=== PATIENT | male | born 1935 | race Caucasian/White ===

== ENCOUNTER 2024-03-07 23:31 | Inpatient (IN) | payer MEDICARE, SELFPAY ==
[2024-03-07] VITALS (7 sets, daily range): BP systolic 118–143; BP diastolic 33–88; PULSE 48–52; BMI 38.8
[2024-03-07 18:15] LABS: % Basophils 0.4 % (0-2); % Eosinophils 1.5 % (0-6); % Immature Granulocytes 0.3 % (0-0.5); % Lymphocytes 33.2 % (20.5-51.1); % Neutrophils 54.6 % (42.2-75.2); Absolute Eosinophils 0.1 10^3/uL (0-0.7); Absolute Lymphocytes 2.4 10^3/uL (1.2-3.4); Absolute Monocytes 0.7 10^3/uL (0.1-0.6); Absolute Neutrophils 3.9 10^3/uL (1.4-6.5); Hematocrit 36.6 % (39.0-52.0); Hemoglobin 12.3 g/dL (13.0-18.0); Mean Corp Hgb Conc. 33.6 g/dL (33.0-37.0); Mean Corpuscular Volume 86.3 fL (80.0-94.0); Mean Platelet Volume 9.5 fL (7.4-10.4); Nucleated Red Blood Cells % 0 % (-); Platelet Count 149 10^3/uL (130-400); Red Blood Cell Count 4.24 10^6/uL (4.70-6.10); Red Cell Dist. Width 14.8 % (11.5-14.5); White Blood Cell Count 7.2 10^3/uL (4.8-10.8)
[2024-03-07 18:37] LABS: ALT (SGPT) 13 U/L (0-50); AST (SGOT) 20 U/L (17-59); Albumin 4.5 g/dl (3.5-5.0); Alkaline Phosphatase 78 U/L (38-126); Blood Urea Nitrogen 33 mg/dl (9-20); Calcium 8.9 mg/dl (8.4-10.2); Glucose 113 mg/dl (70-99); Total Bilirubin 0.4 mg/dl (0.2-1.3); Total Protein 6.6 g/dl (6.3-8.2)
[2024-03-07 18:54] LABS: NT-proBNP 6930 pg/ml
[2024-03-07 18:56] LABS: Carbon Dioxide 22 mmol/L (22-30); Chloride 107 mmol/L (98-107); Potassium 4.2 mmol/L (3.5-5.1); Sodium 140 mmol/L (135-145); eGFR 33.72
--- NOTE | 2024-03-07 20:51 | ED.GENMED ---
History of Present Illness
General
Chief Complaint: Heart Rate Problem
Source: patient
Exam Limitations: none
Time Seen by Provider: 03/07/24 20:18
History of Present Illness
History of Present Illness:
This is a 88 year old male that comes in with c/o feeling like he is going to pass out. States that this started on Thursday. States that he feels like if he doesn't hold on to things he is going to fall. States that he has not fallen. States that he
feels very SOB. Denies any fever, chills, chest pain, abd pain, nausea, vomiting, diarrhea, headache, no dizziness, urinary burning.
Past History
Past History
ED Past Medical History: CAD, Cancer (Skin CA), CHF, COPD, GERD, HTN, Hypercholesterolemia, NIDDM, GA, Psychiatric (Claustrophobia) and Other (Neuropathy, numbness and tingling in the arms and legs. Sleep apnea, Mitral regurg, Ulcers)
ED Past Surgical History: Appendectomy, Cardiac (Stents, CABG, ), Orthopedic (Bilateral knee's and left hip and right hip replacement, Foot surgery, Torn meniscus) and Other (Cataracts, Myringotomy tube left ear)
Social History
Tobacco: Former smoker
Alcohol: Occasional
Personal:
Living: alone
Review of Systems
Review of Systems
All Other Systems: ROS reviewed and negative except as documented in HPI and ROS
Constitutional: Reports no symptoms; Denies fever or chills
EENT: Reports no symptoms
Respiratory: Reports trouble breathing; Denies cough
Cardiac: Reports no symptoms; Denies chest pain
ABD/GI: Reports no symptoms; Denies abdominal pain, nausea, vomiting or diarrhea
: Reports no symptoms; Denies dysuria, frequency or urgency
Musculoskeletal: Reports no symptoms
Skin: Reports no symptoms
Neurological: Reports other (Feels like he is going to fall); Denies dizzy or headache
Psychiatric: Reports no symptoms
Phy Exam
General Physical Exam
General Presentation: no apparent distress
General age: appears stated age
General Skin: warm
General Habitus: elderly
General Mental: alert
General Hydration: appears well hydrated
ENT Exam
ENT Exam: TM's normal, pharynx normal and neck supple
Eye Exam
Eye Exam: EOMI
Cardiovascular Exam
Cardiovascular Exam: normal peripheral pulses, bradycardia and irregularly irregular
Pulmonary Exam
Pulmonary Exam: lungs clear, no respiratory distress, no rales, chest non tender, no crackles, no rhonchi, no wheezing and no cough
Gastrointestinal Exam
Gastrointestinal Exam: normal bowel sounds, non tender, soft, no organomegaly, no pulsatile mass and non distended
Musculoskeletal Exam
Musculoskeletal Exam: full ROM and edema (+2pitting edema of the lower legs)
Skin Exam
Skin Exam: normal color, warm/dry, no rash and no petechia
Psychiatric Exam
Psychiatric Exam: normal mood/affect
Course
Orders/Labs/Results
Orders:
Orders
03/07/24 17:51
EKG [Electrocardiogram (*1)] Urgent
Reason for Study: Shortness of Breath
EKG- Treatment ONCE
03/07/24 18:08
BNP [NT-proBNP] Urgent
CMP [Comprehensive Metabolic Panel] Urgent
Complete Blood Count/With Diff Urgent
03/07/24 20:50
CR Chest - 2 Views Urgent
Comment:
Reason For Exam: sob
03/07/24 20:51
Troponin I Urgent
03/07/24 20:54
CT Head W/o Iv Contrast Urgent
Comment:
Reason For Exam: Feels like he is going to fall
03/07/24 21:12
COVID-19 Antigen Urgent
Source: Nasal Swab
03/07/24 21:23
Orthostatic VS- Treatment ONCE
03/07/24 22:59
EKG- Treatment ONCE
03/07/24 23:20
Admit/Transfer Patient As Directed
Co-Sign Provider:
Level of Care: Inpatient admission
Assign to:: Telemetry
Physician / Group: salo
Diagnosis: orthostatic hypotension, chf exacerbation
Reason for Telemetry: Arrhythmia
Date to Stop Telemetry: 03/10/24
Time to Stop Telemetry: 11:00
Reason for Hospitalization: orthostatic hypotension, chf exacerbation
Expected length of stay greater than two midnights?: Yes
ELOS- Estimated Length of Stay in days: 2
I certify the patient meets the requirements for IP care: Yes
03/07/24 23:21
Code Status As Directed
Resuscitation Status: Full Code
PRN Pain Medication Management As Directed
May give lesser potent ordered pain med per pt: Yes
preference::
Protocol:: Medication orders for pain may be administered in a
manner that supports deferring to patient preference
when the pt is:
- Requesting an ordered lesser potent pain medication.
Least to most potent pain medications are defined
as: acetaminophen < NSAID < tramadol < opioids
(morphine, oxycodone, hydromorphone).
- Requesting a lesser dose of the same medication IF
ORDERED.
- Requesting a less intrusive route of administration
if both routes are prescribed by the provider (PO <
IV).
03/07/24 23:55
Electrocardiogram (*1) Urgent
Reason for Study: Atrial Fibrillation
Other Reason for Exam: Repeat with Troponin.
Troponin I Urgent
03/10/24 11:00
DC Protocol for Telemetry ONCE
Abnormal Lab Results
03/07/24 03/07/24
18:08 20:51
RBC 4.24 L 10^6/uL
(4.70-6.10)
Hgb 12.3 L g/dL
(13.0-18.0)
Hct 36.6 L %
(39.0-52.0)
RDW 14.8 H %
(11.5-14.5)
Absolute Monos (auto) 0.7 H 10^3/uL
(0.1-0.6)
Monocytes % 10.0 H %
(1.7-9.3)
BUN 33 H mg/dl
(9-20)
Creatinine 1.9 H mg/dL
(0.7-1.3)
Glucose 113 H mg/dl
(70-99)
Troponin I 0.046 H* ng/ml
03/07/24 18:08
03/07/24 18:08
H/H slightly low. Dehydration, chronic renal insufficiency, Glucose nonfasting Pro-BNP 6930 troponin 0.046
Vital Signs
Initial and Last Documented VS:
Initial Vital Signs
Temp Pulse Resp BP Pulse Ox
98.0 F 52 20 128/66 94
03/07/24 17:46 03/07/24 17:46 03/07/24 17:46 03/07/24 17:46 03/07/24 17:46
Last Documented Vital Signs
Temp Pulse Resp BP Pulse Ox
98.0 F 53 19 135/88 97
03/07/24 17:46 03/07/24 23:25 03/07/24 23:25 03/07/24 22:37 03/07/24 22:45
MDM/Problems Addressed
Differential Diagnosis Includes:
Cardiac arrhythmia, CHF, CVA
MDM/Problems Addressed:
This is a 88 year old male that comes in with c/o feeling like he is going to fall or pass out when he walks. States that he is very SOB and that this started on Thursday.
Will check labs, Ct head and chest x-ray.
Back into see patient. Explained that his Troponin is elevated along with the Pro-BNP. Patient is very bradycardic Spoke with Dr. Echavarria and he said that in September patient weighed 248 and now is 260 today. States that he also became very Orthostatic
in there office. Explained to patient that they may need to adjust his medication. Will admit.
Chronic conditions affecting care: CAD and Arrhythmia
Acute Exacerbation and/or Progression of Chronic Illness: CAD and Arrhythmia
*Radiology
Radiology exam reviewed: radiology read reviewed (Chest- No acute cardiopulmonary process. CT head- No acute intracranial abnormality noted. )
*Pulse Oximetry
Patient hypoxic: no
*EKG
Interpreted by ED Provider?: Yes
Heart Rate: 54
Rate: bradycardiac
Rhythm: a-fib
[place]: left axis deviation
QRS Pattern: right bundle branch block (incomplete)
Ischemia: no ischemia
*End Finder Forming Department Interpretation
Rate: bradycardiac
Heart Rate: 55
Rhythm: a-fib
*Critical Care Note
Total Time (30-74mins, 75-104mins- exclusive of procedures): Not Applicable
ED Attending Note
-
Portions of this chart may have been created with voice recognition software.� Occasional wrong word or��sound alike� substitutions may have occurred due to the inherent limitations of voice recognition software.
Discharge Plan
Departure
Patient Disposition: Admit
Date of Disposition: 03/07/24
Time of Disposition: 23:02
Admit to: Telemetry
Presentation/result/management discussed w/ accepting MD/DO: Hospitalist
Patient with high blood pressure during this ER visit?: Yes
Condition: Good
Covid-19: Not Applicable
Discharge Problem:
Elevated troponin, bradycardic atrial fib, SOB (shortness of breath)
Interventions
Interventions:
ED- Fall Risk Assessment Last Done: 03/07/24 21:15
*ED COVID-19 Vaccine History Last Done: 03/07/24 17:46
ED- Pulmonary Assessment Last Done: 03/07/24 21:15
ED- Neurological Assessment Last Done: 03/07/24 21:15
ED- Cardiac Assessment Last Done: 03/07/24 21:15
[2024-03-07 21:19] LABS: COVID-19 Antigen Negative (Negative)
[2024-03-07 21:38] LABS: Troponin I 0.046 ng/ml
--- NOTE | 2024-03-07 23:24 | HPS.HSE ---
Family Physician
-
Family Physician: Reed Echavarria
Chief Complaint
-
dizziness
History of Present Illness
88-year-old male past medical history of diabetes, coronary artery disease status post CABG/ stent, moderate aortic stenosis, obstructive sleep apnea, COPD, obesity hypoventilation, hypertension, obesity, CKD 3A, BPH, hypercholesterolemia,
presenting with feeling like he is going to pass out over the past 2 days. He states that if he does not hold onto anything he is going to fall. He denies falling. He feels short of breath with exertion which started at the same time. He denies
any fevers or chills, chest pain, abdominal pain, nausea vomiting, diarrhea, headache, urinary symptoms.
Emergency room spoke with Dr. Echavarria who states that patient was 248 pounds in September and now 260 pounds. He was noted to be orthostatic in the office. He denies any lower extremity edema.
He no longer smokes. He occasionally drinks alcohol.
Medical History
Past Medical History
Past Medical History: Reports Other (diabetes, coronary artery disease status post CABG/ stent, moderate aortic stenosis, obstructive sleep apnea, COPD, obesity hypoventilation, hypertension, obesity, CKD 3A, BPH, hypercholesterolemia)
Past Surgical History: Reports Other ( Appendectomy, Cardiac (Stents, CABG, ), Orthopedic (Bilateral knee's and left hip and right hip replacement, Foot surgery, Torn meniscus) and Other (Cataracts, Myringotomy tube left ear))
Social History
Tobacco: Former Smoker
Alcohol: Occasional
Drug: None
Family History
Family History: Not pertinent
Allergies / Home Medications
Allergies reflects when Allergies were last updated in [facility].
Home Medications with original date entered in [facility]
Allergy/Medication List:
Allergies
Allergy/AdvReac Type Severity Reaction Status Date / Time
No Known Allergies Allergy Verified 03/07/24 17:50
Home Medications
albuterol sulfate 90 mcg/actuation aerosol inhaler 2 puff inhalation R Q4HPRN PRN SHORTNESS OF BREATH 08/03/20
ascorbic acid (vitamin C) 1,000 mg tablet (Vitamin C) 1,000 mg PO DAILY Supplement 08/03/20
budesonide 32 mcg/actuation nasal spray (Rhinocort Allergy) 2 spray intranasal DAILY Allergies 08/03/20
cyanocobalamin (vitamin B-12) 1,000 mcg tablet 1,000 mcg PO DAILY Supplement 08/03/20
esomeprazole magnesium 40 mg capsule,delayed release (Nexium) 40 mg PO DAILY Gastrointestinal issue 08/03/20
fluticasone fur. 100 mcg-umeclid 62.5 mcg-vilant 25 mcg inhalat.powder (Trelegy Ellipta) 1 puff inhalation R DAILY Lung/breathing issues 08/03/20
furosemide 80 mg tablet 80 mg PO DAILY Fluid retention/Swelling 08/03/20
gabapentin 300 mg capsule 300 mg PO BID@0800,1700 Pain 08/03/20
gabapentin 300 mg capsule 600 mg PO HS Pain 08/03/20
iqkhbozkmlf-mwlmluswl-key C-Mn 750 mg-600 mg-55 mg-5 mg tablet 1 tab PO BID Supplement 08/03/20
lisinopril 5 mg tablet 5 mg PO DAILY Blood pressure 08/03/20
loratadine 10 mg tablet 10 mg PO DAILYPRN PRN allergies 08/03/20
meloxicam 7.5 mg tablet 7.5 mg PO BID Pain 08/03/20
metoprolol succinate 50 mg tablet,extended release 24 hr 50 mg PO DAILY Blood pressure 08/03/20
multivitamin with folic acid 400 mcg tablet (Tab-A-Evie) 1 tab PO DAILY Supplement 08/03/20
paroxetine HCl 12.5 mg tablet,extended release 24 hr 12.5 mg PO DAILY Depression 08/03/20
potassium chloride 20 mEq tablet,extended release(part/cryst) (Klor-Con M) 20 meq PO DAILY Supplement 08/03/20
rosuvastatin 40 mg tablet (Crestor) 40 mg PO HS High cholesterol 08/03/20
vitamin B complex (Neurodep) 1 cap PO DAILY Supplement 08/03/20
insulin aspart U-100 100 unit/mL (3 mL) subcutaneous pen (Novolog FlexPen U-100 Insulin aspart) 12 units (0.12 mL) SC AC ##1 08/04/20
insulin glargine 100 unit/mL (3 mL) subcutaneous pen (Lantus Solostar U-100 Insulin) 20 units (0.2 mL) SC HS ##1 08/04/20
Review of Systems
-
History Source: Patient
A 12 point ROS was completed and negative except as noted: Yes
Constitutional: Reports No Symptoms
EENT: Reports No Symptoms
Respiratory: Reports See HPI
Cardiac: Reports No Symptoms
Abdomen/GI: Reports No Symptoms
: Reports No Symptoms
Musculoskeletal: Reports No Symptoms
Skin: Reports No Symptoms
Neurological: Reports See HPI
Endocrine: Reports No Symptoms
Hematologic/Lymphatic: Reports No Symptoms
Psych: Reports No Symptoms
Physical Exam
Vital Signs
Vital Signs
Temp Pulse Resp BP Pulse Ox
98.0 F 49 16 135/88 97
03/07/24 17:46 03/07/24 22:45 03/07/24 22:45 03/07/24 22:37 03/07/24 22:45
Physical Exam
General: Well Developed, Well Nourished and No Apparent Distress
HEENT: NormoCephalic, Moist mucous membranes and Atraumatic
Respiratory: Clear
Cardiac: S1/S2 and Regular Rhythm; No Murmur or Rub
GI: Soft, Non Tender, Non Distended and Normal Bowel Sounds; No Organomegaly
Rectal: Deferred by Provider
Musculoskeletal: No Clubbing, No Cyanosis and No Edema
Skin: No Rash
Neuro: Nonfocal/grossly intact
Laboratory Results
-
03/07/24 18:08
03/07/24 18:08
Laboratory Results
Total Bilirubin 0.4 mg/dl (0.2-1.3) 03/07/24 18:08
AST 20 U/L (17-59) 03/07/24 18:08
ALT 13 U/L (0-50) 03/07/24 18:08
Alkaline Phosphatase 78 U/L (38-126) 03/07/24 18:08
Troponin I 0.046 ng/ml H* 03/07/24 20:51
Data Reviewed
-
Lab Data: Labs Reviewed by me
Old Records: Reviewed
Impression/Plan
-
IMPRESSION:
PLAN:
# Orthostatic hypotension secondary to antihypertensive/cardiac medications
-Check orthostatic vitals here
-Hold lisinopril
# New onset atrial fibrillation with slow ventricular response
-EKG shows atrial fibrillation, incomplete right bundle branch block, heart rate of 54
-Hold metoprolol
# Acute CHF exacerbation
-Cardiac BNP of 7000
-Chest x-ray without any cardiopulmonary abnormality
-Check I's and O's, daily weights
-Patient appears to be clinically in heart failure however cannot easily diurese at this time due to orthostatic hypotension
-continue Jardiance
-check echo
-cardiology consulted
# Nonischemic myocardial injury
# History of CAD status post CABG
-continue aspirin
-Trend troponins
# BUDDY on CKD 3A secondary to cardiorenal/hypotension
-Creatinine of 1.9 from 1.2
-Hold lisinopril
Moderate aortic stenosis
Obstructive sleep apnea
COPD
-Continue albuterol, inhalers
Former smoker
Obesity hypoventilation
Type 2 diabetes
-Continue glargine 10 u
-ISS
Diabetic neuropathy
-Continue Lyrica
Essential hypertension
Hyperlipidemia
-Continue statin
Obesity
GERD
-Continue omeprazole
Anxiety/depression
-Continue paroxetine
Chronic Back pain
-continue tramadol
BPH
-continue tamsulosin
Full code
DVT prophylaxis�heparin
Cardiac diet
[2024-03-08] VITALS (10 sets, daily range): BP systolic 113–155; BP diastolic 66–80; PULSE 2–61; BMI 37.4
[2024-03-08 01:15] LABS: Troponin I 0.043 ng/ml
[2024-03-08 01:34] LABS: Glucose - Point of Care 120 mg/dl (70-99)
--- NOTE | 2024-03-08 05:51 | PTCARENOTE ---
Pt's HR dropping to 34-39 on monitor while asleep. HR in 50s while awake. CORE DRILLER notified. No new orders.
BiPAP order placed for pt. RT on floor to place on pt. Plan of care ongoing.
[2024-03-08 07:13] LABS: % Basophils 0.6 % (0-2); % Eosinophils 1.4 % (0-6); % Immature Granulocytes 0.3 % (0-0.5); % Lymphocytes 35.2 % (20.5-51.1); % Monocytes 9.9 % (1.7-9.3); % Neutrophils 52.6 % (42.2-75.2); Absolute Eosinophils 0.1 10^3/uL (0-0.7); Absolute Lymphocytes 2.3 10^3/uL (1.2-3.4); Absolute Monocytes 0.6 10^3/uL (0.1-0.6); Absolute Neutrophils 3.4 10^3/uL (1.4-6.5); Hematocrit 36.7 % (39.0-52.0); Hemoglobin 12.2 g/dL (13.0-18.0); Mean Corp Hgb Conc. 33.2 g/dL (33.0-37.0); Mean Corpuscular Hgb 28.6 pg (27.0-31.0); Mean Corpuscular Volume 86.2 fL (80.0-94.0); Nucleated Red Blood Cells % 0 % (-); Platelet Count 142 10^3/uL (130-400); Red Blood Cell Count 4.26 10^6/uL (4.70-6.10); Red Cell Dist. Width 14.6 % (11.5-14.5); White Blood Cell Count 6.5 10^3/uL (4.8-10.8)
[2024-03-08 07:21] LABS: Troponin I 0.043 ng/ml
[2024-03-08 07:34] LABS: ALT (SGPT) 12 U/L (0-50); AST (SGOT) 19 U/L (17-59); Albumin 3.9 g/dl (3.5-5.0); Alkaline Phosphatase 79 U/L (38-126); Blood Urea Nitrogen 29 mg/dl (9-20); Calcium 8.9 mg/dl (8.4-10.2); Carbon Dioxide 24 mmol/L (22-30); Chloride 107 mmol/L (98-107); Estimated Creatinine Clearance 41 ml/min; Glucose 104 mg/dl (70-99); Potassium 4.2 mmol/L (3.5-5.1); Sodium 140 mmol/L (135-145); Total Bilirubin 0.5 mg/dl (0.2-1.3); Total Protein 5.9 g/dl (6.3-8.2); eGFR 41.44
[2024-03-08 07:53] LABS: Glucose - Point of Care 109 mg/dl (70-99)
--- NOTE | 2024-03-08 07:53 | CON.CAR ---
Addendum entered and electronically signed by Kuldip Lima MD 03/08/24 10:49:
I saw and examined the patient.
The TACK WELDER or PA's note was reviewed and I agree with the note.
Comment: General: Well developed, well nourished in NAD.
Neck: Supple, no JVD, HJR, carotids +2 B/L, no bruits bilaterally.
Heart: Non displaced PMI, Irreg, no murmurs, No S3, S4, no rubs.
Lungs: Clear to auscultation bilaterally, no wheeze, rhonchi, rubs bilaterally,
normal expiratory phase.
Abdomen: Normal bowel sounds, soft, non-tender, non-distended.
Extremities: No clubbing, cyanosis or edema bilaterally.
Neuro: Grossly nonfocal, awake, alert and oriented x3.
Reed has a history of CAD status post CABG and remote PCI, chronic diastolic CHF, obesity, sleep apnea on CPAP, moderate aortic stenosis, hyperglycemia, renal sufficiency, diabetes. He presented with dyspnea on exertion and new onset atrial
fibrillation. He also has had dizziness recently.
Reluctant to give diuretics with renal insufficiency which has improved. Remains in A-fib with pauses at times and Toprol has been stopped.
Eventual AMILCAR/cardioversion. Will check echocardiogram. Will start Eliquis 2.5 mg p.o. twice daily which may need to be changed based on eventual renal function
Original Note:
Consultation
Consultation Request
Date/Time Consultation Performed: 03/08/24
Requesting Provider: Dr. Amador
Performing Provider: Joyce Merino PA-C for Dr. Lima
Reason for Consultation: DIANA
Medical History
-
Chief Complaint: DIANA
History of Present Illness:
Patient is reporting an 88-year-old male with past medical history of CAD status post remote CABG and prior PCI, chronic HFpEF, obesity, BRAYDON on CPAP, moderate aortic stenosis, hypercholesterolemia, renal insufficiency, diabetes with diabetic
neuropathy who presented to due to DIANA. He reports noting worsening shortness of breath with exertion and associated lightheadedness since last Thursday. He reports he sits down and it resolves. He denies chest discomfort or palpitations. He
denies noting worsening lower extremity edema or abdominal bloating. He reports it was difficult last night to breathe prior to placing his CPAP. He states he has been compliant with his CPAP every night. He takes p.o. Lasix 80 mg daily as OP. He
has noted recent weight gain, however states he feels as though this is related to poor diet. Reportedly was orthostatic in PCP office yesterday. ProBNP 6900. CXR without acute abnormality. EKG shows new afib with slow vent response. On toprol 25mg
daily as OP. Cardiology consulted for evaluation.
PMH:
Chronic heart failure with preserved EF
CAD status post remote CABG and prior PCI
Renal insufficiency
Moderate
Hypertension
Hyperlipidemia
Diabetes with diabetic neuropathy
COPD
Obesity
BRAYDON on CPAP
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
Remote former smoker
Past Medical History
Past Medical History: Other (in HPI)
Social History
Tobacco: Former Smoker
Alcohol: Occasional
Personal:
Living: Assisted Living
Employment: Retired
Allergies / Home Medications
Allergy/AdvReac Type Severity Reaction Status Date / Time
No Known Allergies Allergy Verified 03/07/24 17:50
�Medication �Instructions �Recorded �Confirmed �Type
albuterol sulfate 90 mcg/actuation 2 puff inhalation R Q4HPRN PRN 08/03/20 03/07/24 History
aerosol inhaler SHORTNESS OF BREATH
cyanocobalamin (vitamin B-12) 1,000 mcg PO DAILY Supplement 08/03/20 03/07/24 History
1,000 mcg tablet
esomeprazole magnesium 40 mg 40 mg PO DAILY Gastrointestinal 08/03/20 03/07/24 History
capsule,delayed release (Nexium) issue
furosemide 80 mg tablet 80 mg PO DAILY Fluid 08/03/20 03/07/24 History
retention/Swelling
yxegxtkgzmm-svkqrhaom-cby C-Mn 750 1 tab PO BID Supplement 08/03/20 03/07/24 History
mg-600 mg-55 mg-5 mg tablet
lisinopril 5 mg tablet 5 mg PO DAILY Blood pressure 08/03/20 03/07/24 History
loratadine 10 mg tablet 10 mg PO DAILY 08/03/20 03/07/24 History
multivitamin with folic acid 400 1 tab PO DAILY Supplement 08/03/20 03/07/24 History
mcg tablet (Tab-A-Evie)
paroxetine HCl 12.5 mg 12.5 mg PO DAILY Depression 08/03/20 03/07/24 History
tablet,extended release 24 hr
potassium chloride 20 mEq 20 meq PO DAILY Supplement 08/03/20 03/07/24 History
tablet,extended
release(part/cryst) (Klor-Con M)
rosuvastatin 40 mg tablet (Crestor) 40 mg PO HS High cholesterol 08/03/20 03/07/24 History
ascorbic acid (vitamin C) 500 mg 500 mg PO DAILY 03/07/24 03/07/24 History
tablet (Vitamin C)
aspirin 81 mg tablet,delayed 81 mg PO HS 03/07/24 03/07/24 History
release
empagliflozin 10 mg tablet 10 mg PO DAILY 03/07/24 03/07/24 History
(Jardiance)
insulin glargine 100 unit/mL (3 10 unit SC HS 03/07/24 03/07/24 History
mL) subcutaneous pen (Basaglar
KwikPen U-100 Insulin)
metoprolol succinate 25 mg 25 mg PO DAILY 03/07/24 03/07/24 History
tablet,extended release 24 hr
pregabalin 100 mg capsule 100 mg PO TID 03/07/24 03/07/24 History
tamsulosin 0.4 mg capsule 0.4 mg PO HS 03/07/24 03/07/24 History
tramadol 50 mg tablet 50 mg PO TIDPRN PRN moderate pain 03/07/24 03/07/24 History
umeclidinium 62.5 mcg-vilanterol 1 inh inhalation R DAILY 03/07/24 03/07/24 History
25 mcg/actuation powdr for
inhalation (Anoro Ellipta)
Review of Systems
-
History Source: Patient
All other systems: Negative unless noted
Physical Exam
Vital Signs
Temp Pulse Resp BP Pulse Ox
97.6 F 56 18 113/77 98
03/08/24 07:00 03/08/24 07:00 03/08/24 07:00 03/08/24 07:00 03/08/24 07:00
Lab Results
03/08/24 06:46
03/08/24 06:46
Troponin I Cancelled 03/08/24 19:21
Nxd-S-Xjiflplcojc Pept 6930 pg/ml 03/07/24 18:08
Physical Exam
General: No Apparent Distress and Comfortable
HEENT: Normocephalic, Anicteric and Moist Mucous Membranes
Respiratory: Clear and Non Labored Respirations
Cardiac: S1/S2, Irregular Rhythm and Murmur
GI: Soft, Non Tender, Non Distended and Normal Bowel Sounds
Musculoskeletal: No Clubbing, No Cyanosis and Edema (1+ of RLE, trace of LLE)
Skin: Warm and Dry
Neuro: AO x 3
Impression / Plan
-
Primary Hair Weaver: Dr. Lima
Assessment:
Presentation with DIANA, lightheadedness
Concern for acute on chronic heart failure with preserved EF
Orthostasis
BUDDY on chronic renal insufficiency
New atrial fibrillation of unclear duration, with slow ventricular response
Elevated troponin, suspected nonischemic myocardial injury
CAD status post remote CABG and prior PCI
Moderate
Hypertension
Hyperlipidemia
Diabetes with diabetic neuropathy
COPD
Obesity
BRAYDON on CPAP
GERD
BPH
Chronic back pain
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
Remote former smoker
Lexiscan nuclear stress test 08/2018: Imaging with small area of mildly decreased perfusion fixed in basal anterolateral segment that resolves with prone imaging consistent with STA, EF 58%, no evidence of significant CAD
ECHO 06/03/23: EF 50-55, no regional wall motion abnormalities, mild concentric LVH, moderate AAS with peak/mean gradients 29/18 mmHg, BRENDA 1.2 cm�, mild AR
Plan:
-Patient is an 88-year-old male who presented to [facility] due to dyspnea on exertion with associated dizziness.
-proBNP elevated and patient reports weight gain due to dietary indiscretion, however x-ray without evidence of acute CHF. On p.o. Lasix 80 mg daily as OP, presently on hold.
-Creatinine downtrending, 1.6 on 03/08. Outpatient lisinopril and Jardiance also on hold at present
-Remains with positive orthostatic vital signs this morning, however patient reports feeling improved. Will add Tubigrip stockings
-By EKG noted to be in new atrial fibrillation with slow ventricular response of unclear duration. Holding outpatient Toprol
-Check echo. with mod by last echo from 05/2023
-may need to consider for AMILCAR/CV prior to DC
-TSH pending
-[id number] score of 6 for age, HTN, CHF, vascular disease, diabetes. discussed OAC with patient. no significant bleeding events in past. has history of falls however none recently. will plan to initiate OAC - of note, dosing for eliquis borderline
due to fluctuating renal function, currently dosing would be 2.5mg BID. consider stopping asa (as stenting/CABG is remote) to reduce bleeding risks
-trops flat at 0.04. no CP. suspected nonischemic myocardial injury. consider for OP stress testing. last stress in 2018 without evidence of significant CAD.
-check ambulatory pulse ox
Data Reviewed
-
EKG: Tracing Personally Visualized and interpreted
Radiology: Report Reviewed by me
Medical Tests (Nuc Med, Echo etc): Report Reviewed by me
Labs: Discussed with Physician
Old Records: Reviewed
[2024-03-08] MEDS: VITAMIN B-12 1000 MCG PO (07:54)
[2024-03-08] MEDS: HEPARIN 5000 UNITS SC (07:54)
[2024-03-08] MEDS: THERAGRAN 1 TABLET PO (07:54)
[2024-03-08] MEDS: VITAMIN C 500 MG PO (07:54)
[2024-03-08] MEDS: LYRICA 100 MG PO (07:54)
[2024-03-08] MEDS: PROTONIX 40 MG PO (07:54)
[2024-03-08] MEDS: CLARITIN 10 MG PO (07:54)
[2024-03-08] MEDS: PAXIL 10 MG PO (07:54)
[2024-03-08] MEDS: STRIVERDI RESPIMAT 2 PUFF INH (08:02)
[2024-03-08] MEDS: SPIRIVA RESPIMAT 2.5 MCG 2 PUFF INH (08:02)
--- NOTE | 2024-03-08 10:48 | CM ---
Reviewed chart, received consult for med check on Eliquis. Per patient's plan, Eliquis will be 116.97 for 60 pills. (One month BID).
--- NOTE | 2024-03-08 10:55 | CM ---
Addendum entered by TI Herrera 03/08/24 15:20:
Reviewed chart, went to meet with patient to obtain information for assessment. Patient in test. Placed a call to patient's son however had to leave a voice mail message. Will f/u with patient when he returns.
Original Note:
Eliquis 2.5 mg BID-131.42
--- NOTE | 2024-03-08 11:44 | CARDSERVLU ---
Echocardiogram with Lumason completed after protocol screening completed. Allergies verified.
Patent IV site: _Right Antecubital site clear (in patient)____
IV site flushed with 0.9% NaCl pre and post administration.
Diluted bolus method utilized to enhance visualization of ventricular castellanos.
Total volume given: __4__ mL
Patient tolerated all procedures well without complications.
[2024-03-08 11:56] LABS: Glucose - Point of Care 103 mg/dl (70-99)
[2024-03-08] MEDS: ELIQUIS 2.5 MG PO ×2 (11:56→21:05)
--- NOTE | 2024-03-08 13:03 | W.PN.HOSP.TC ---
Today's Communication/Plan
-
Mgmt as per cardio for new onset Afib
MRI brain
Assessment / Plan
Assessment / Plan
88yo M with PMHx of BRAYDON, CAD s/p CABG, DM, HTN, BPH, MDD, COPD came with complains of pre-syncopal events for past few days. Found new onset afib.
A/P:
#Presyncope 2/2 new onset Afib with slow ventricular responce and orthostatic hypotension
#Non-ischemic cardiac injury
#Moderate
#CAD s/p CABG
Telemetry
Eliquis
AMILCAR and cardioversion planned by escort service attendant
Troponin remained mildly elevated without futher up-trend.
Check TSH
No signs of obvious fluid overload on chest XR, diuretic to be held with BUDDY
Echo
Head CT unremarkable - MRI brain to exclude posterior stroke
stop Ultram
#BUDDY
baseline Cr around 1.2
avoid nephrotoxic drugs
follow Cr - improving
Check Urine Na, Osm, Cr
hold ACEi
#DM type 2 with neuropathy
Insulin SS, DM diet, accuchecks, HgbA1c
cont home insulin
cont Pregabalin adjusted dose
#BPH
#MDD
#Essential HTN
#COPD not in exacerbation
#BRAYDON
cotn CPAP
cont home meds except of ACEi
DVT ppx on eliquis
Full code
I have spent at least 58min reviewing chart, test results, communication with consutltants and direct patient care
Anticipated Discharge: > 48 hours
Subjective/Interval History
-
Date of Service: March 08, 2024
Objective Data
-
Labs:
Laboratory Results
03/08/24
06:46
WBC 6.5
Hgb 12.2 L
Hct 36.7 L
Plt Count 142
Sodium 140
Potassium 4.2
Chloride 107
Carbon Dioxide 24
BUN 29 H
Creatinine 1.6 H
Glucose 104 H
Calcium 8.9
Total Bilirubin 0.5
AST 19
ALT 12
Alkaline Phosphatase 79
Vital Signs:
Vital Signs
Temp Pulse Resp BP Pulse Ox
97.9 F 50 14 134/80 96
03/08/24 11:40 03/08/24 11:40 03/08/24 11:40 03/08/24 11:40 03/08/24 11:40
I&O
03/07/24 03/08/24 03/09/24
06:59 06:59 06:59
Intake Total 580 / 580
Balance 580 / 580
Review of Systems
-
History Source: Patient
All other systems: Reviewed and negative
Physical Exam
-
General: No Apparent Distress
HEENT: Normocephalic
Respiratory: Clear to Auscultation
Cardiac: Irregular Rhythm
GI: Soft, Nontender and Nondistended
Genito-urinary: No Costovertebral Tender
Musculoskeletal: No Clubbing, No Cyanosis, Edema, Right Lower Extrem (trace) and Edema, Left Lower Extrem (trace)
Skin: Warm
Neuro: Awake, Alert, Oriented and AO x 3
Psych: Calm
[2024-03-08 13:09] LABS: TSH Reflex To Free T4 1.45 uIU/ml (0.47-4.68)
[2024-03-08 15:22] LABS: Osmolality Urine 570 mOsm/kg (300-900)
[2024-03-08 15:53] LABS: Urine Sodium 55 mmol/L (30-90)
[2024-03-08] MEDS: LYRICA 50 MG PO ×2 (16:03→21:05)
--- NOTE | 2024-03-08 16:14 | W.PN.UPDATE ---
Update Note
Progress Note Update
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
[2024-03-08 16:29] LABS: Glucose - Point of Care 134 mg/dl (70-99)
[2024-03-08 16:41] LABS: Magnesium 2.1 mg/dl (1.6-2.3)
--- NOTE | 2024-03-08 17:19 | W.PN.UPDATE ---
Update Note
Progress Note Update
NSVT on tele - cardio to be informed. Electrolytes checked and WNL
[2024-03-08] MEDS: FLOMAX 0.4 MG PO (21:05)
[2024-03-08] MEDS: CRESTOR 40 MG PO (21:06)
[2024-03-08 21:42] LABS: Glucose - Point of Care 149 mg/dl (70-99)
[2024-03-08] MEDS: LANTUS 0.1 UNITS SC (22:08)
[2024-03-09] VITALS (8 sets, daily range): BP systolic 141–152; BP diastolic 58–81; PULSE 2; BMI 37.5
[2024-03-09 07:25] LABS: % Basophils 0.4 % (0-2); % Eosinophils 0.5 % (0-6); % Immature Granulocytes 0.4 % (0-0.5); % Lymphocytes 23.7 % (20.5-51.1); % Monocytes 8.2 % (1.7-9.3); % Neutrophils 66.8 % (42.2-75.2); Absolute Lymphocytes 1.8 10^3/uL (1.2-3.4); Absolute Monocytes 0.6 10^3/uL (0.1-0.6); Absolute Neutrophils 5.1 10^3/uL (1.4-6.5); Hematocrit 37.4 % (39.0-52.0); Hemoglobin 12.5 g/dL (13.0-18.0); Mean Corp Hgb Conc. 33.4 g/dL (33.0-37.0); Mean Corpuscular Hgb 29.5 pg (27.0-31.0); Mean Corpuscular Volume 88.2 fL (80.0-94.0); Nucleated Red Blood Cells % 0 % (-); Platelet Count 135 10^3/uL (130-400); Red Blood Cell Count 4.24 10^6/uL (4.70-6.10); Red Cell Dist. Width 14.6 % (11.5-14.5); White Blood Cell Count 7.7 10^3/uL (4.8-10.8)
[2024-03-09 07:27] LABS: Glucose - Point of Care 128 mg/dl (70-99)
[2024-03-09] MEDS: SPIRIVA RESPIMAT 2.5 MCG 2 PUFF INH (07:30)
[2024-03-09] MEDS: STRIVERDI RESPIMAT 2 PUFF INH (07:30)
[2024-03-09 07:31] LABS: ALT (SGPT) 12 U/L (0-50); AST (SGOT) 19 U/L (17-59); Albumin 3.8 g/dl (3.5-5.0); Alkaline Phosphatase 83 U/L (38-126); Blood Urea Nitrogen 24 mg/dl (9-20); Calcium 9.2 mg/dl (8.4-10.2); Carbon Dioxide 23 mmol/L (22-30); Chloride 107 mmol/L (98-107); Estimated Creatinine Clearance 46 ml/min; Glucose 113 mg/dl (70-99); Magnesium 2.1 mg/dl (1.6-2.3); Potassium 4.4 mmol/L (3.5-5.1); Sodium 140 mmol/L (135-145); Total Bilirubin 0.7 mg/dl (0.2-1.3); Total Protein 5.9 g/dl (6.3-8.2); eGFR 48.65
[2024-03-09] MEDS: PAXIL 10 MG PO (08:17)
[2024-03-09] MEDS: ELIQUIS 2.5 MG PO (08:17)
[2024-03-09] MEDS: LYRICA 50 MG PO ×3 (08:17→21:50)
[2024-03-09] MEDS: THERAGRAN 1 TABLET PO (08:17)
[2024-03-09] MEDS: PROTONIX 40 MG PO (08:17)
[2024-03-09] MEDS: VITAMIN B-12 1000 MCG PO (08:17)
[2024-03-09] MEDS: VITAMIN C 500 MG PO (08:17)
[2024-03-09] MEDS: CLARITIN 10 MG PO (08:17)
--- NOTE | 2024-03-09 09:26 | W.PN.CARDCBS ---
Addendum entered and electronically signed by Felipe Patton DO 03/09/24 11:42:
I saw and examined the patient.
The Renewable Energy Engineer's note was reviewed and I agree with the note.
Comment:
Plan:
Plan for AMILCAR/cv in AM
Increase Eliquis now that cr has improved and monitor cr.
Holding Lasix, ACEI and jardiance. May resume lasix at lower dose prior to d/c and cont to monitor for wt gain or edema
Beta alan held with prior bradycardia.
Continue medical therapy of non-VA troponin. Could consider outpatient ischemic evaluation.
Outpatient follow-up to be arranged.
Discussed with son at bedside.
Original Note:
Today's Communication / Plan
-
holding lasix, toprol, lisinopril, jardiance
follow ortho VS
ambulate/amb pulse ox
likely for AMILCAR/CV in AM
increase eliquis to 5mg BID given improvement in Cr
Impression / Plan
-
Primary Trim Sawyer: Dr. Lima
Assessment:
Presentation with allison DIANA
Concern for acute on chronic heart failure with preserved EF
Orthostasis
BUDDY on chronic renal insufficiency
New atrial fibrillation of unclear duration, with slow ventricular response
Elevated troponin, suspected nonischemic myocardial injury
CAD status post remote CABG and prior PCI
Moderate
Hypertension
Hyperlipidemia
Diabetes with diabetic neuropathy
COPD
Obesity
BRAYDON on CPAP
GERD
BPH
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
Chronic back pain
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
Remote former smoker
Lexiscan nuclear stress test 08/2018: Imaging with small area of mildly decreased perfusion fixed in basal anterolateral segment that resolves with prone imaging consistent with STA, EF 58%, no evidence of significant CAD
ECHO 06/03/23: EF 50-55, no regional wall motion abnormalities, mild concentric LVH, moderate with peak/mean gradients 29/18 mmHg, BRENDA 1.2 cm�, mild AR
ECHO 03/08/24: EF 50 to 55%, mild MR, mild with peak/mean gradients 18/9 mmHg, mild AR, mild TR, dilated aortic root measuring 3.8 cm at sinuses of Valsalva and 3.5 cm at sinotubular junction with ascending aorta dilatation measuring 4.5 cm
Plan:
-Patient is an 88-year-old male who presented to [facility] due to dyspnea on exertion with associated dizziness.
-proBNP elevated and patient reports weight gain due to dietary indiscretion, however x-ray without evidence of acute CHF and with BUDDY on arrival. On p.o. Lasix 80 mg daily as OP, remains on hold and Cr downtrending, 1.4 on 03/09. denies recent
adjustment in medications, gi illness, dehydration to his knowledge.
-Outpatient lisinopril and Jardiance also on hold at present
-Ortho VS were positive 03/08, awaiting repeat 03/09. continue Tubigrip stockings
-with new atrial fibrillation with slow ventricular response of unclear duration. Holding outpatient Toprol and HR trends improving in afib overnight on review of tele
-echo 03/08 with preserved EF, mild valvular disease. reviewed with patient and son at bedside 03/09
-ambulate patient. if without significant desaturations, will plan for AMICLAR/CV in AM. reviewed procedure in detail with patient and son at bedside 03/09
-[id number] score of 6 for age, HTN, CHF, vascular disease, diabetes. no significant bleeding events in past. has history of falls, however none recently. eliquis initiated 03/08. as Cr now <1.5, will increase eliquis dosing to 5mg BID. OP asa
stopped (as stenting/CABG remote) to reduce bleeding risks
-TSH WNL
-trops flat at 0.04. no CP. suspected nonischemic myocardial injury. consider for OP stress testing. last stress in 2018 without evidence of significant CAD.
-brain MRI negative for acute abnormalities
Progress Note - Trim Sawyer
Subjective
Date of Service: March 09, 2024
Reports with an episode overnight of some shortness of breath improved with use of CPAP. No chest pain
Objective
Labs:
03/09/24 06:40
03/09/24 06:40
Labs
Hgb 12.5 g/dL (13.0-18.0) L 03/09/24 06:40
Hct 37.4 % (39.0-52.0) L 03/09/24 06:40
Plt Count 135 10^3/uL (130-400) 03/09/24 06:40
Sodium 140 mmol/L (135-145) 03/09/24 06:40
Potassium 4.4 mmol/L (3.5-5.1) 03/09/24 06:40
BUN 24 mg/dl (9-20) H 03/09/24 06:40
Creatinine 1.4 mg/dL (0.7-1.3) H 03/09/24 06:40
Glucose 113 mg/dl (70-99) H 03/09/24 06:40
Troponins
03/07/24 03/08/24 03/08/24
20:51 00:25 06:46
Troponin I 0.046 H* 0.043 H* 0.043 H*
03/08/24 03/08/24 03/08/24
07:21 07:21 13:21
Troponin I Cancelled Cancelled Cancelled
03/08/24
19:21
Troponin I Cancelled
Vital Signs and I&O:
Vital Signs
Temp Pulse Resp BP Pulse Ox
97.7 F 80 16 146/79 99
03/09/24 07:00 03/09/24 07:35 03/09/24 07:35 03/09/24 07:00 03/09/24 07:35
Vital Signs
Temp Pulse Resp BP Pulse Ox
97.7 F 80 16 146/79 99
03/09/24 07:00 03/09/24 07:35 03/09/24 07:35 03/09/24 07:00 03/09/24 07:35
Intake & Output
03/07/24 03/08/24 03/09/24 03/10/24
07:59 07:59 07:59 07:59
Intake Total 580 / 580
Balance 580 / 580
Physical Exam
Physical Exam
GEN: No distress, awake, alert, oriented x3. obese
HEENT: supple, anicteric, mmm, eomi
LUNGS: CTA B/L, no wheezes/rales
CV: Irreg, S1/S2, 1/6 syst LSB
ABD: soft, BS+
EXT: No cyanosis, clubbing. trace edema of B/L LE
NEURO: Gross non-focal
SKIN: Warm, pink, dry. No rash
--- NOTE | 2024-03-09 10:30 | W.PN.HOSP.TC ---
Today's Communication/Plan
-
AMILCAR and CV in AM
Assessment / Plan
Assessment / Plan
88yo M with PMHx of BRAYDON, CAD s/p CABG, DM, HTN, BPH, MDD, COPD came with complains of pre-syncopal events for past few days. Found new onset afib.
A/P:
#Presyncope 2/2 new onset Afib with slow ventricular response and orthostatic hypotension
#NSVT
#Non-ischemic cardiac injury
#Moderate
#CAD s/p CABG
#$.5cm ascending aortic aneurism
Telemetry
Eliquis - dose increased as per Cardiology
AMILCAR and cardioversion planned by industrial economist
Troponin remained mildly elevated without further up-trend.
Check TSH
No signs of obvious fluid overload on chest XR, diuretic to be held with BUDDY
Echo: preserved EF
FOllow aneurism with CT/MRI every six months
Head CT unremarkable - MRI brain excluded posterior stroke
stop Ultram
#BUDDY
baseline Cr around 1.2
avoid nephrotoxic drugs
follow Cr - improving
hold ACEi, Jardiance
#DM type 2 with neuropathy
Insulin SS, DM diet, accuchecks, HgbA1c
cont home insulin
cont Pregabalin adjusted dose
#BPH
#MDD
#Essential HTN
#COPD not in exacerbation
#BRAYDON
cotn CPAP
cont home meds except of ACEi
DVT ppx on eliquis
Full code
I have spent at least 58min reviewing chart, test results, communication with consutltants and direct patient care
Anticipated Discharge: > 48 hours
Subjective/Interval History
-
Date of Service: March 09, 2024
Objective Data
-
Labs:
Laboratory Results
03/09/24
06:40
WBC 7.7
Hgb 12.5 L
Hct 37.4 L
Plt Count 135
Sodium 140
Potassium 4.4
Chloride 107
Carbon Dioxide 23
BUN 24 H
Creatinine 1.4 H
Glucose 113 H
Calcium 9.2
Total Bilirubin 0.7
AST 19
ALT 12
Alkaline Phosphatase 83
Vital Signs:
Vital Signs
Temp Pulse Resp BP Pulse Ox
97.7 F 80 16 146/79 94
03/09/24 07:00 03/09/24 07:35 03/09/24 07:35 03/09/24 07:00 03/09/24 10:04
I&O
03/08/24 03/09/24 03/10/24
06:59 06:59 06:59
Intake Total 580 / 580
Balance 580 / 580
Review of Systems
-
All other systems: Reviewed and negative
Constitutional: Reports No Symptoms
Respiratory: Reports Trouble Breathing
Physical Exam
-
General: No Apparent Distress
Respiratory: Clear to Auscultation
Cardiac: Regular Rhythm
GI: Soft, Nontender and Nondistended
Musculoskeletal: No Clubbing, No Cyanosis and No Edema
Skin: Warm
Neuro: Awake
Psych: Calm
[2024-03-09 12:27] LABS: Glucose - Point of Care 146 mg/dl (70-99)
--- NOTE | 2024-03-09 14:31 | CM ---
Addendum entered by TI Herrera 03/09/24 16:29:
Received return call from Ananya who stated that [facility] does not have a contract with but they use, [phone], [facility] [phone], [facility] [phone] and [facility], .
Will make referral to [facility] as they have skilled PT/OT.
Addendum entered by TI Herrera 03/09/24 14:52:
Placed a call to Ananya sanitary landfill supervisor in [place] at [facility] to confirm that patient can have [place] [facility] or if there are particular agencies in which they contract. Had to leave a voice mail message. Will await return call with determination.
Original Note:
Reviewed chart, met with patient to obtain information for assessment. Patient stated that he lives alone at [facility] in [place]. His a year ago and since his sister and son have been very supportive.
Both live local.
Patient described himself as independent with his ADLs and self care as well as dressing and bathing. He ambulates independently but does have a rollator and a walker for long distances. Patient stated that his sister makes his meals and cleans his
house as well as assists with bandage maker and laundry.
Patient has not had VN in the past. He has not been to a SNF.
Patient has a prescription plan and uses, [facility] in [place] for all of his medications.
Patient's PCP is Reed Echavarria.
Received consult for VN. Patient stated that he is agreeable and would like VN. Referral made.
Plan: Case management will continue to follow and assist with discharge planning. Home with VN.
[2024-03-09 16:32] LABS: Glucose - Point of Care 110 mg/dl (70-99)
[2024-03-09] MEDS: CRESTOR 40 MG PO (20:37)
[2024-03-09] MEDS: ELIQUIS 5 MG PO (20:37)
[2024-03-09] MEDS: FLOMAX 0.4 MG PO (20:37)
[2024-03-09 21:17] LABS: Glucose - Point of Care 139 mg/dl (70-99)
[2024-03-09] MEDS: LANTUS 0.1 UNITS SC (21:50)
[2024-03-10] VITALS (7 sets, daily range): BP systolic 119–176; BP diastolic 75–95; PULSE 2–102; O2SAT 96; BMI 37.1
[2024-03-10 06:38] LABS: Glucose - Point of Care 124 mg/dl (70-99)
[2024-03-10 06:46] LABS: % Basophils 0.4 % (0-2); % Eosinophils 0.4 % (0-6); % Immature Granulocytes 0.5 % (0-0.5); % Lymphocytes 21.7 % (20.5-51.1); % Monocytes 11.5 % (1.7-9.3); % Neutrophils 65.5 % (42.2-75.2); Absolute Immature Granulocytes 0.1 10^3/uL (0-0.05); Absolute Monocytes 1.1 10^3/uL (0.1-0.6); Hematocrit 36.3 % (39.0-52.0); Hemoglobin 12.3 g/dL (13.0-18.0); Mean Corp Hgb Conc. 33.9 g/dL (33.0-37.0); Mean Corpuscular Hgb 28.9 pg (27.0-31.0); Mean Corpuscular Volume 85.2 fL (80.0-94.0); Mean Platelet Volume 8.9 fL (7.4-10.4); Nucleated Red Blood Cells % 0 % (-); Platelet Count 136 10^3/uL (130-400); Red Blood Cell Count 4.26 10^6/uL (4.70-6.10); Red Cell Dist. Width 14.5 % (11.5-14.5); White Blood Cell Count 9.2 10^3/uL (4.8-10.8)
[2024-03-10 07:18] LABS: AST (SGOT) 20 U/L (17-59); Albumin 3.9 g/dl (3.5-5.0); Alkaline Phosphatase 82 U/L (38-126); Blood Urea Nitrogen 18 mg/dl (9-20); Calcium 9.3 mg/dl (8.4-10.2); Carbon Dioxide 21 mmol/L (22-30); Chloride 107 mmol/L (98-107); Estimated Creatinine Clearance 50 ml/min; Glucose 129 mg/dl (70-99); Potassium 4.2 mmol/L (3.5-5.1); Sodium 141 mmol/L (135-145); Total Bilirubin 0.9 mg/dl (0.2-1.3); Total Protein 6.1 g/dl (6.3-8.2); eGFR 53.17
[2024-03-10] MEDS: ELIQUIS 5 MG PO (07:20)
[2024-03-10 07:27] LABS: ALT (SGPT) 13 U/L (0-50)
[2024-03-10] MEDS: THERAGRAN 1 TABLET PO (09:45)
[2024-03-10] MEDS: LYRICA 50 MG PO (09:45)
[2024-03-10] MEDS: VITAMIN C 500 MG PO (09:45)
[2024-03-10] MEDS: PROTONIX 40 MG PO (09:45)
[2024-03-10] MEDS: CLARITIN 10 MG PO (09:45)
[2024-03-10] MEDS: PAXIL 10 MG PO (09:45)
[2024-03-10] MEDS: VITAMIN B-12 1000 MCG PO (09:46)
[2024-03-10] MEDS: STRIVERDI RESPIMAT 2 PUFF INH (10:14)
[2024-03-10] MEDS: SPIRIVA RESPIMAT 2.5 MCG 2 PUFF INH (10:15)
--- NOTE | 2024-03-10 10:19 | W.PN.CARDCBS ---
Addendum entered and electronically signed by Francine Vuong DO 03/10/24 14:09:
I saw and examined the patient.
The Center Punch Operator's note was reviewed and I agree with the note.
Comment: Patient seen and examined just prior to and after AMILCAR cardioversion today for new onset atrial fibrillation. Patient reports improved shortness of breath and no chest pain. No dizziness. AMILCAR cardioversion performed without complication
with successful conversion to sinus rhythm. Patient out of bed eating lunch at the time of second visit and asymptomatic.
GEN: NAD, OOB to chair
HEENT:mmm
LUNGS: CTA B/L, no wheezes/rales
CV: Reg, S1/S2, 1/6 syst LSB
EXT: trace edema of B/L LE
NEURO: Gross non-focal
Plan:
-Patient is an 88-year-old male who presented to [facility] due to dyspnea on exertion with associated dizziness found to be in new AF with SVR.
-Successful AMILCAR/cardioversion 03/10/24 with improved HR trends
-Start Toprol XL 12.5 mg daily and monitor heart rate trends. Will also arrange for outpatient assembler wet wash to monitor for bradycardia arrhythmia as well as AF
-Continue uninterrupted new Eliquis 5 mg twice daily
-Discussed the importance of CPAP compliance
-TSH within normal limits, 1.45 on 03/08/2024
-Consider outpatient EP evaluation for ablation
Heart failure with preserved ejection fraction in the setting of slow atrial fibrillation
-remains off OP lasix 80mg daily, as well as OP lisinopril and jardiance.
-Cr continues to improve.
-Will resume outpatient Lasix 40 mg daily. Resume lisinopril 5 mg daily starting tomorrow. Will continue to hold Jardiance for now
-Repeat basic metabolic profile in 1 week
History of coronary artery disease status post remote CABG and prior PCI
-trops flat at 0.04. no CP. suspected nonischemic myocardial injury.
-consider for OP stress testing. last stress in 2019 without evidence of significant CAD.
Moderate aortic stenosis�continue outpatient surveillance monitoring
AAA, 4.5 cm, outpatient surveillance monitoring
History of type 2 diabetes mellitus with hemoglobin A1c 6%
-Strict glycemic control stressed. Given recent renal insufficiency will hold Jardiance but likely resume as an outpatient
Dizziness/lightheadedness
-Symptoms resolved
-brain MRI negative for acute abnormalities
-OP cardiac follow up arranged
Plan for discharge to senior care facility
Will sign off, recall if needed
Original Note:
Today's Communication / Plan
-
s/p successful AMILCAR/CV
continue eliquis 5mg BID
will need to determine cardiac med regimen for DC
BMP in 1 week
OP cardiac follow up arranged
Impression / Plan
-
Primary Material Yard Clerk: Dr. Lima
Assessment:
Presentation with DIANA, lightheadedness
Concern for acute on chronic heart failure with preserved EF
Orthostasis
BUDDY on chronic renal insufficiency
New atrial fibrillation of unclear duration, with slow ventricular response
Elevated troponin, suspected nonischemic myocardial injury
CAD status post remote CABG and prior PCI
Moderate
Hypertension
Hyperlipidemia
Diabetes with diabetic neuropathy
COPD
Obesity
BRAYDON on CPAP
GERD
BPH
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
Chronic back pain
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
Remote former smoker
Lexiscan nuclear stress test 08/2018: Imaging with small area of mildly decreased perfusion fixed in basal anterolateral segment that resolves with prone imaging consistent with STA, EF 58%, no evidence of significant CAD
ECHO 06/03/23: EF 50-55, no regional wall motion abnormalities, mild concentric LVH, moderate with peak/mean gradients 29/18 mmHg, BRENDA 1.2 cm�, mild AR
ECHO 03/08/24: EF 50 to 55%, mild MR, mild with peak/mean gradients 18/9 mmHg, mild AR, mild TR, dilated aortic root measuring 3.8 cm at sinuses of Valsalva and 3.5 cm at sinotubular junction with ascending aorta dilatation measuring 4.5 cm
Plan:
-Patient is an 88-year-old male who presented to [facility] due to dyspnea on exertion with associated dizziness.
-remains off OP lasix 80mg daily, as well as OP lisinopril and jardiance. Cr continues to improve. will need to determine new med regimen prior to DC, perhaps low dose lasix and low dose lisinopril.
-continue tubigrip stockings. repeat ortho VS
-with new afib with slow vent response on arrival. s/p successful AMILCAR/CV 03/10, in SR. OP toprol 25mg daily on hold with bradycardia on arrival in afib. HRs presently in 60s. consider resuming at lower dose for DC. may require OP cardiac monitoring
-new to eliquis 5mg BID this admission. OP asa stopped
-will need BMP in 1 week upon DC
-TSH WNL
-trops flat at 0.04. no CP. suspected nonischemic myocardial injury. consider for OP stress testing. last stress in 2018 without evidence of significant CAD.
-brain MRI negative for acute abnormalities
-OP cardiac follow up arranged
-d/w nursing. d/w patient and son at bedside
Progress Note - Material Yard Clerk
Subjective
Date of Service: March 10, 2024
Reports feeling well. Ambulated from stretcher into room without difficulty
Objective
Labs:
03/10/24 06:20
03/10/24 06:20
Labs
Hgb 12.3 g/dL (13.0-18.0) L 03/10/24 06:20
Hct 36.3 % (39.0-52.0) L 03/10/24 06:20
Plt Count 136 10^3/uL (130-400) 03/10/24 06:20
Sodium 141 mmol/L (135-145) 03/10/24 06:20
Potassium 4.2 mmol/L (3.5-5.1) 03/10/24 06:20
BUN 18 mg/dl (9-20) 03/10/24 06:20
Creatinine 1.3 mg/dL (0.7-1.3) 03/10/24 06:20
Glucose 129 mg/dl (70-99) H 03/10/24 06:20
Troponins
03/07/24 03/08/24 03/08/24
20:51 00:25 06:46
Troponin I 0.046 H* 0.043 H* 0.043 H*
03/08/24 03/08/24 03/08/24
07:21 07:21 13:21
Troponin I Cancelled Cancelled Cancelled
03/08/24
19:21
Troponin I Cancelled
Vital Signs and I&O:
Vital Signs
Temp Pulse Resp BP Pulse Ox
99.0 F 63 18 135/80 95
03/10/24 08:26 03/10/24 08:26 03/10/24 08:26 03/10/24 08:26 03/10/24 10:05
Vital Signs
Temp Pulse Resp BP Pulse Ox
99.0 F 63 18 135/80 95
03/10/24 08:26 03/10/24 08:26 03/10/24 08:26 03/10/24 08:26 03/10/24 10:05
Intake & Output
03/08/24 03/09/24 03/10/24 03/11/24
07:59 07:59 07:59 07:59
Intake Total 580 / 580 1260 / 1260
Balance 580 / 580 1260 / 1260
Physical Exam
Physical Exam
GEN: No distress, awake, alert, oriented x3. obese
HEENT: supple, anicteric, mmm, eomi
LUNGS: CTA B/L, no wheezes/rales
CV: Reg, S1/S2, 1/6 syst LSB
EXT: No cyanosis, clubbing. trace edema of B/L LE
NEURO: Gross non-focal
SKIN: Warm, pink, dry. No rash
--- NOTE | 2024-03-10 10:22 | CM ---
Addendum entered by TI Herrera 03/10/24 13:55:
Spoke with patient who stated that he would rather go home than go to SNF. Spoke with nursing staff who confirmed that he has been independently ambulating to and from toilet and around the room.
Placed a call to [facility] and spoke with Therese to update that patient will be discharged today. She stated that she will give patient a call.
Patient stated that his son will be in to pick him up today.
Addendum entered by TI Herrera 03/10/24 12:20:
Received message from attending that patient is medically cleared for discharge and SNF is indicated. Placed a call to Rosina to update and left message. Request was made for her to return call with # for report and # for fax.
Addendum entered by TI Herrera 03/10/24 11:06:
Spoke with attending who stated that patient may be cleared for discharge tomorrow. PT/OT ordered. Checked med cost for Eliquis-30 day supply BID, 5mg tablets are 131.42.
This was relayed to attending.
Placed a call to Rosina at [facility] [phone] to update. Will let her know if patient needs SNF.
Original Note:
Reviewed chart, received call from Rosina at [facility] who stated that she will hold a SNF bed for him in the event that he needs it. Advised her of plan currently which is home with VN however that may change. She confirmed she will hold
a bed. No auth needed for transfer.
Plan: Case management will continue to follow and assist with discharge planning. Transfer back to [place], [place] with VN or SNF pending on his functional status at time of discharge.
--- NOTE | 2024-03-10 10:49 | W.PN.HOSP.TC ---
Today's Communication/Plan
-
monitoring and d/c withing 24h
Assessment / Plan
Assessment / Plan
88yo M with PMHx of BRAYDON, CAD s/p CABG, DM, HTN, BPH, MDD, COPD came with complains of pre-syncopal events for past few days. Found new onset afib with slow responce. Had CV on 03/10/24
A/P:
#Presyncope 2/2 new onset Afib with slow ventricular response and orthostatic hypotension
#NSVT
#Non-ischemic cardiac injury
#Moderate
#CAD s/p CABG
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
Telemetry
Eliquis - dose increased as per Cardiology
AMILCAR and cardioversion planned by chief security officer
Troponin remained mildly elevated without further up-trend.
TSH WNL
No signs of obvious fluid overload on chest XR, diuretic to be held with BUDDY
Echo: preserved EF
FOllow aneurism with CT/MRI every six months
Head CT unremarkable - MRI brain excluded posterior stroke
stop Ultram
#BUDDY
baseline Cr around 1.2
avoid nephrotoxic drugs
follow Cr - improving
hold ACEi, Jardiance
#DM type 2 with neuropathy
Insulin SS, DM diet, accuchecks, HgbA1c
cont home insulin
cont Pregabalin adjusted dose
#BPH
#MDD
#Essential HTN
#COPD not in exacerbation
#BRAYDON
cotn CPAP
cont home meds except of ACEi
DVT ppx on eliquis
Full code
I have spent at least 58min reviewing chart, test results, communication with consutltants and direct patient care
Anticipated Discharge: Within 24 hours
Subjective/Interval History
-
Date of Service: March 10, 2024
Objective Data
-
Labs:
Laboratory Results
03/10/24
06:20
WBC 9.2
Hgb 12.3 L
Hct 36.3 L
Plt Count 136
Sodium 141
Potassium 4.2
Chloride 107
Carbon Dioxide 21 L
BUN 18
Creatinine 1.3
Glucose 129 H
Calcium 9.3
Total Bilirubin 0.9
AST 20
ALT 13
Alkaline Phosphatase 82
Vital Signs:
Vital Signs
Temp Pulse Resp BP Pulse Ox
99.0 F 63 16 135/80 96
03/10/24 08:26 03/10/24 10:18 03/10/24 10:18 03/10/24 08:26 03/10/24 10:18
I&O
03/09/24 03/10/24 03/11/24
06:59 06:59 06:59
Intake Total 1260 / 1260
Balance 1260 / 1260
Review of Systems
-
History Source: Patient
All other systems: Reviewed and negative
Physical Exam
-
General: No Apparent Distress
HEENT: Normocephalic
Respiratory: Clear to Auscultation
Cardiac: Regular Rhythm
GI: Soft, Nontender and Nondistended
Musculoskeletal: No Clubbing, No Cyanosis and No Edema
Neuro: Awake, Alert, Oriented and AO x 3
Psych: Calm
[2024-03-10 11:19] LABS: Glucose - Point of Care 105 mg/dl (70-99)
[2024-03-10] MEDS: TOPROL XL 12.5 MG PO (11:57)
--- NOTE | 2024-03-10 12:06 | W.DCSUMMARY ---
Addendum entered and electronically signed by Virgil Amador MD 03/10/24 13:44:
88yo M with PMHx of BRAYDON, CAD s/p CABG, DM, HTN, BPH, MDD, COPD came with complains of pre-syncopal events for past few days. Found new onset afib with slow responce. Had CV on 03/10/24. Participated in PT/OT on the day of d/c. Recommended for twice a
year monitoring of thoracic aorta. Patient verbalized understandingMedically stable for d/c
I have spent at least 36 min preparing d/c
A/P:
#Presyncope 2/2 new onset Afib with slow ventricular response and orthostatic hypotension
#NSVT
#Non-ischemic cardiac injury
#Moderate
#CAD s/p CABG
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
#BUDDY
#DM type 2 with neuropathy
#BPH
#MDD
#Essential HTN
#COPD not in exacerbation
#BRAYDON
Original Note:
Discharge Summary
Discharge Data
Date of Admission: 03/07/24
Date of Discharge: 03/10/24
-
Pending Results: No
Hospital Course
88yo M with PMHx of BRAYDON, CAD s/p CABG, DM, HTN, BPH, MDD, COPD came with complains of pre-syncopal events for past few days. Found new onset afib with slow responce. Had CV on 03/10/24
A/P:
#Presyncope 2/2 new onset Afib with slow ventricular response and orthostatic hypotension
#NSVT
#Non-ischemic cardiac injury
#Moderate
#CAD s/p CABG
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
Telemetry
Eliquis - dose increased as per Cardiology
AMILCAR and cardioversion planned by supervisor powdered sugar
Troponin remained mildly elevated without further up-trend.
TSH WNL
No signs of obvious fluid overload on chest XR, diuretic to be held with BUDDY
Echo: preserved EF
FOllow aneurism with CT/MRI every six months
Head CT unremarkable - MRI brain excluded posterior stroke
stop Ultram
#BUDDY
baseline Cr around 1.2
avoid nephrotoxic drugs
follow Cr - improving
hold ACEi, Jardiance
#DM type 2 with neuropathy
Insulin SS, DM diet, accuchecks, HgbA1c
cont home insulin
cont Pregabalin adjusted dose
#BPH
#MDD
#Essential HTN
#COPD not in exacerbation
#BRAYDON
Discharge Plan
-
Patient Disposition: Acute Rehab Facility
Discharge Diagnosis/Procedures: Afib
Diet: Low Cholesterol and Low Sodium
Activity: As tolerated
Driving Restrictions: As prior to admission
Blood Work: BMP in 1 week
Others Tests: 7 day clinical research monitor, to be placed prior to discharge.
Other Services: PT and OT
Specialty Instructions: Weigh Daily- Call MD for wt gain/loss 3 lbs overnight/5 lbs in 1 week
Instructions: *DCA Heart Failure Instructions
Referrals:
Reed Echavarria MD [Family Provider] -
Kuldip Lima MD [Active] - 03/22/24 2:40 pm (You have a cardiology follow up appointment at the [place] office. Please call with questions. )
Additional Discharge Medication Instructions: Your lasix dose has been reduced for now to 40mg daily. HOLD jardiance until seen in cardiology office. Toprol dose has been reduced to 12.5mg daily.
Prescriptions:
New
Eliquis 5 mg Tablet
5 mg PO BID Qty: 60 0RF
furosemide 40 mg Tablet
40 mg PO DAILY Qty: 30 0RF
metoprolol succinate 25 mg Tablet Extended Release 24 Hr
12.5 mg PO DAILY Qty: 30 0RF
Continued
cyanocobalamin (vitamin B-12) 1,000 MCG tablet
1,000 mcg PO DAILY
potassium chloride [Klor-Con M20] 20 MEQ tablet,ER particles/crystals
20 meq PO DAILY
esomeprazole magnesium [Nexium] 40 MG capsule,delayed release(DR/EC)
40 mg PO DAILY
lisinopril 5 MG tablet
5 mg PO DAILY
albuterol sulfate 1 PUFF HFA aerosol inhaler
2 puff inhalation R Q4HPRN PRN (Reason: SHORTNESS OF BREATH)
wqblnvvxrqd-zptnxvviu-idp C-Mn 1 TAB tablet
1 tab PO BID
loratadine 10 MG tablet
10 mg PO DAILY
paroxetine HCl 12.5 MG tablet extended release 24 hr
12.5 mg PO DAILY
rosuvastatin [Crestor] 40 MG tablet
40 mg PO HS
multivitamin with folic acid [Tab-A-Evie] 1 TABLET tablet
1 tab PO DAILY
aspirin 81 mg tablet,delayed release (DR/EC)
81 mg PO HS
tramadol 50 mg tablet
50 mg PO TIDPRN PRN (Reason: moderate pain)
Patient Comments:
03/07/2024: last filled 02/16/24, 120 tabs for 30 days from [facility]
ascorbic acid (vitamin C) [Vitamin C] 500 mg Tablet
500 mg PO DAILY
tamsulosin 0.4 mg capsule
0.4 mg PO HS
metoprolol succinate 25 mg tablet extended release 24 hr
25 mg PO DAILY
pregabalin 100 mg capsule
100 mg PO TID
Patient Comments:
03/07/2024: last filled 02/21/24, 84 tabs for 28 days from [facility]
insulin glargine [Basaglar KwikPen U-100 Insulin] 100 unit/mL (3 mL) insulin pen
10 unit SC HS
Anoro Ellipta 62.5-25 mcg/actuation blister with device
1 inh INHALATION R DAILY
Jardiance 10 mg tablet
10 mg PO DAILY
Discontinued
furosemide 80 MG tablet
80 mg PO DAILY
Discharge Date and Time
Print Language: IRAQI
--- NOTE | 2024-03-10 13:02 | PN.CDI ---
Addendum entered and electronically signed by Virgil Amador MD 03/10/24 14:17:
no change in documentation
Original Note:
CDI
- -
CDI:
Physician Documentation Request
Admit Date: 03/07/24 23:31
Dear Doctor Marjorie,
Clinical Indicators:
Patient admitted with new onset atrial fibrillation.
03/07 H & P, 'Acute CHF exacerbation...Patient appears to be clinically in heart failure however cannot easily diurese at this time due to orthostatic hypotension'
Cardiology consult, 'Concern for acute on chronic heart failure with preserved EF'
03/10 PN, 'No signs of obvious fluid overload on chest XR, diuretic to be held with BUDDY.'
BNP:
03/07/24
18:08
[id number]-[id number] Pept 6930
Due to potentially conflicting documentation, please clarify the acuity of the HFpEF:
Acute on chronic heart failure with preserved EF, suspected
Chronic HFpEF only
Other, please specify
Use of terms such as suspected, likely, concern for, or probable (associated with a specific diagnosis that is being evaluated, monitored, or treated as if it exists) are acceptable and can be coded in the inpatient setting, when documented at the
time of discharge.
Thank you,
Wanda Rose RN BSN
CDI Specialist
available via tiger text
Please use your independent medical judgment in providing your response.
== END 2024-03-10 15:08 | disposition home or self-care (01) | DRG 309 ==
LOC: 3 WEST ACU 23:31
PROVIDERS: Clinical Nurse Specialist Family Health; Emergency Medicine; Internal Medicine Cardiovascular Disease; ADMITTING PHYSICIAN Hospitalist; ATTENDING PHYSICIAN Internal Medicine; EMERGENCY PHYSICIAN Student in an Organized Health Care Education/Training Program; FAMILY PHYSICIAN Family Medicine; OTHER PHYSICIAN Internal Medicine Cardiovascular Disease
PROC: 5A09357 Assistance with Respiratory Ventilation, Less than 24 Consecutive Hours, Continuous Positive Airway Pressure (ICD-10-PCS; 2024-03-08)
PROC: 5A2204Z Restoration of Cardiac Rhythm, Single (ICD-10-PCS; 2024-03-10)
DX: I48.91 Unspecified atrial fibrillation (principal); E66.2 Morbid (severe) obesity with alveolar hypoventilation; I5A Non-ischemic myocardial injury (non-traumatic); I13.0 Hypertensive heart and chronic kidney disease with heart failure and stage 1 through stage 4 chronic kidney disease, or unspecified chronic kidney disease; I50.32 Chronic diastolic (congestive) heart failure; N17.9 Acute kidney failure, unspecified; E11.22 Type 2 diabetes mellitus with diabetic chronic kidney disease; I71.21 Aneurysm of the ascending aorta, without rupture; E11.40 Type 2 diabetes mellitus with diabetic neuropathy, unspecified; N18.31 Chronic kidney disease, stage 3a; I35.0 Nonrheumatic aortic (valve) stenosis; F32.9 Major depressive disorder, single episode, unspecified; J44.9 Chronic obstructive pulmonary disease, unspecified; Z68.38 Body mass index [BMI] 38.0-38.9, adult; I47.29 Other ventricular tachycardia; Z95.1 Presence of aortocoronary bypass graft; I95.2 Hypotension due to drugs; T46.5X5A Adverse effect of other antihypertensive drugs, initial encounter; E78.00 Pure hypercholesterolemia, unspecified; E86.0 Dehydration; F40.240 Claustrophobia; G89.29 Other chronic pain; M54.9 Dorsalgia, unspecified; I45.10 Unspecified right bundle-branch block; I25.10 Atherosclerotic heart disease of native coronary artery without angina pectoris; Z85.828 Personal history of other malignant neoplasm of skin; N40.0 Benign prostatic hyperplasia without lower urinary tract symptoms; K21.9 Gastro-esophageal reflux disease without esophagitis; R09.02 Hypoxemia; Z79.01 Long term (current) use of anticoagulants; Z79.4 Long term (current) use of insulin; Z79.84 Long term (current) use of oral hypoglycemic drugs; Z79.899 Other long term (current) drug therapy; Z87.891 Personal history of nicotine dependence; Z95.5 Presence of coronary angioplasty implant and graft; Z96.641 Presence of right artificial hip joint
CPT/HCPCS: 70450; 70551; 71046; 80053; 82570; 82962; 83036; 83735; 83880; 83935; 84300; 84443; 84484; 85025; 87070; 87811; 92960; 93005; 93306; 93312; 93320; 93325; 94640; 94660; 97163; 97167; 99285; Q9950

== ENCOUNTER 2024-03-20 20:37 | Emergency (ER) | payer MEDICARE, SELFPAY ==
[2024-03-20 20:45] VITALS: BP 139/82
--- NOTE | 2024-03-20 21:23 | ED.GENMED ---
History of Present Illness
General
Chief Complaint: Breathing Problem
Time Seen by Provider: 03/20/24 21:19
History of Present Illness
History of Present Illness:
88-year-old male with history of newly diagnosed A-fib status post cardioversion presents to the emergency department for evaluation of exertional chest discomfort and shortness of breath that has been ongoing since hospital discharge. He reports
symptoms are fully resolved whenever he is at rest. Denies any new leg swelling. He is currently on 40 mg of Lasix daily, this was reportedly decreased at hospital discharge
Past History
Past History
ED Past Medical History: CAD, Cancer (Skin CA), CHF, COPD, GERD, HTN, Hypercholesterolemia, NIDDM, ND, Psychiatric (Claustrophobia) and Other (Neuropathy, numbness and tingling in the arms and legs. Sleep apnea, Mitral regurg, Ulcers)
ED Past Surgical History: Appendectomy, Cardiac (Stents, CABG, ), Orthopedic (Bilateral knee's and left hip and right hip replacement, Foot surgery, Torn meniscus) and Other (Cataracts, Myringotomy tube left ear)
Social History
Tobacco: Former smoker
Alcohol: Occasional
Personal:
Living: alone
Review of Systems
Review of Systems
Allergies reviewed?: Yes
All Other Systems: ROS reviewed and negative except as documented in HPI and ROS
Phy Exam
Physical Exam
Physical Exam:
GEN: Well appearing, NAD, WDWN
HEENT: Oral mucosa moist, no scleral icterus
Cardiac: Regular rate and rhythm, no murmurs
Lung: Normal respiratory effort, faint crackles heard at the left base, otherwise lungs clear
MSK: No gross deformity or injuries, 2+ edema bilateral lower extremities
Skin: Good color, no pallor or jaundice, no rashes
Neuro: AO x3, moves all extremities freely
Psych: Calm, cooperative
Scores
Heart Failure Risk
Heart Failure Risk Score: Yes
History of Stroke or TIA: No
History of intubation for respiratory distress: No
Heart rate on ED arrival >/= 110: No
SaO2 <90% on arrival on room air: No
HR >/=110 during 3min walk test (or too ill to perform test): Yes
ECG has acute ischemic changes: No
Urea >/=12mmol/L (BUN 33.6mg/dL): No
Serum CO2>/=35mmol/L: No
Troponin I or T elevated to ND Level (0.4mg/dL): Yes
NT-proBNP >/=5,000ng/L (5,000pg/ml): No
HF Risk Score: 4
Admission Status: HIGH RISK 26.1% Consider SNF treatment or admission to hospital
Course
Orders/Labs/Results
Orders:
Orders
03/20/24 20:48
Electrocardiogram (*1) Urgent
Reason for Study: Shortness of Breath
EKG- Treatment ONCE
03/20/24 22:20
CR Chest - 2 Views Urgent
Comment:
Reason For Exam: chest pain/SOB
03/20/24 22:23
Comprehensive Metabolic Panel Urgent
03/20/24 22:24
Complete Blood Count/With Diff Urgent
NT-proBNP Urgent
Troponin I Urgent
03/21/24 00:11
Furosemide [Lasix] 40 mg IV ONCE ONE
03/21/24 00:35
Troponin I Urgent
Abnormal Lab Results
03/20/24 03/20/24 03/21/24
22:23 22:24 00:35
RBC 3.74 L 10^6/uL
(4.70-6.10)
Hgb 11.1 L g/dL
(13.0-18.0)
Hct 32.9 L %
(39.0-52.0)
RDW 14.6 H %
(11.5-14.5)
Monocytes % 10.0 H %
(1.7-9.3)
Chloride 108 H mmol/L
(98-107)
Creatinine 1.4 H mg/dL
(0.7-1.3)
Glucose 121 H mg/dl
(70-99)
Troponin I 0.168 H* ng/ml 0.167 H* ng/ml
Total Protein 5.8 L g/dl
(6.3-8.2)
03/20/24 22:24
03/20/24 22:23
Vital Signs
Initial and Last Documented VS:
Initial Vital Signs
Temp Pulse BP Pulse Ox
98.1 F 73 139/82 94
03/20/24 20:45 03/20/24 20:45 03/20/24 20:45 03/20/24 20:45
Last Documented Vital Signs
Temp Pulse Resp BP Pulse Ox
98.1 F 67 24 139/82 94
03/20/24 20:45 03/20/24 21:30 03/20/24 21:30 03/20/24 20:45 03/20/24 21:30
MDM/Problems Addressed
MDM/Problems Addressed:
Patient's work of breathing is stable and he has only transient hypoxia with ambulation. He is preferentially discharged home which is not unreasonable. Troponin is elevated likely due to CHF however the patient had a repeat troponin checked and
there was no change. He has follow-up with cardiology on Thursday. Will increase his Lasix to 40 mg twice daily for the next 5 days unless otherwise directed by cardiology
Comment
Comment:
EKG independently interpreted by me shows a normal sinus rhythm at a rate of 72 with a first-degree AV block and a right bundle branch block, no ST changes concerning for ischemia
*Critical Care Note
Total Time (30-74mins, 75-104mins- exclusive of procedures): Not Applicable
ED Attending Note
-
Portions of this chart may have been created with voice recognition software.� Occasional wrong word or��sound alike� substitutions may have occurred due to the inherent limitations of voice recognition software.
Discharge Plan
Departure
Patient Disposition: Home (Routine Discharge)
Date of Disposition: 03/21/24
Time of Disposition: 01:47
Patient with high blood pressure during this ER visit?: No
Discharge Problem:
Acute diastolic CHF (congestive heart failure)
Instructions: *CBC Heart Failure Instructions
Prescriptions:
New
furosemide [Lasix] 40 mg tablet
40 mg PO BID Qty: 30 0RF
No Action
cyanocobalamin (vitamin B-12) 1,000 MCG tablet
1,000 mcg PO DAILY
potassium chloride [Klor-Con M20] 20 MEQ tablet,ER particles/crystals
20 meq PO DAILY
esomeprazole magnesium [Nexium] 40 MG capsule,delayed release(DR/EC)
40 mg PO DAILY
lisinopril 5 MG tablet
5 mg PO DAILY
albuterol sulfate 1 PUFF HFA aerosol inhaler
2 puff inhalation R Q4HPRN PRN (Reason: SHORTNESS OF BREATH)
orsetqhclhz-krzoiyume-uyc C-Mn 1 TAB tablet
1 tab PO BID
loratadine 10 MG tablet
10 mg PO DAILY
paroxetine HCl 12.5 MG tablet extended release 24 hr
12.5 mg PO DAILY
rosuvastatin [Crestor] 40 MG tablet
40 mg PO HS
multivitamin with folic acid [Tab-A-Evie] 1 TABLET tablet
1 tab PO DAILY
aspirin 81 mg tablet,delayed release (DR/EC)
81 mg PO HS
tramadol 50 mg tablet
50 mg PO TIDPRN PRN (Reason: moderate pain)
Patient Comments:
03/07/2024: last filled 02/16/24, 120 tabs for 30 days from [facility]
ascorbic acid (vitamin C) [Vitamin C] 500 mg Tablet
500 mg PO DAILY
tamsulosin 0.4 mg capsule
0.4 mg PO HS
metoprolol succinate 25 mg tablet extended release 24 hr
25 mg PO DAILY
pregabalin 100 mg capsule
100 mg PO TID
Patient Comments:
03/07/2024: last filled 02/21/24, 84 tabs for 28 days from [facility]
insulin glargine [Basaglar KwikPen U-100 Insulin] 100 unit/mL (3 mL) insulin pen
10 unit SC HS
Anoro Ellipta 62.5-25 mcg/actuation blister with device
1 inh INHALATION R DAILY
Jardiance 10 mg tablet
10 mg PO DAILY
Eliquis 5 mg Tablet
5 mg PO BID Qty: 60 0RF
furosemide 40 mg Tablet
40 mg PO DAILY Qty: 30 0RF
metoprolol succinate 25 mg Tablet Extended Release 24 Hr
12.5 mg PO DAILY Qty: 30 0RF
Referrals:
Reed Echavarria MD [Family Provider] -
Activity Restrictions/Additional Instructions:
Take Lasix 40 mg twice daily until cardiology follow-up and discuss further dose adjustments at that time
Interventions
Interventions:
*Risk Screen - Suicide Last Done: 03/21/24 00:46
*General Assessment Last Done: 03/20/24 20:47
*Neglect/Abuse Screening Last Done: 03/21/24 00:46
*ED COVID-19 Vaccine History Last Done: 03/20/24 20:47
ED- Cardiac Assessment Last Done: 03/20/24 21:38
ED- Pulmonary Assessment Last Done: 03/20/24 23:00
Discharge Date and Time
Print Language: GHANAIAN
[2024-03-20 22:34] LABS: % Basophils 0.5 % (0-2); % Eosinophils 1.4 % (0-6); % Immature Granulocytes 0.5 % (0-0.5); % Lymphocytes 32.5 % (20.5-51.1); % Neutrophils 55.1 % (42.2-75.2); Absolute Eosinophils 0.1 10^3/uL (0-0.7); Absolute Lymphocytes 2.1 10^3/uL (1.2-3.4); Absolute Monocytes 0.6 10^3/uL (0.1-0.6); Absolute Neutrophils 3.5 10^3/uL (1.4-6.5); Hematocrit 32.9 % (39.0-52.0); Hemoglobin 11.1 g/dL (13.0-18.0); Mean Corp Hgb Conc. 33.7 g/dL (33.0-37.0); Mean Corpuscular Hgb 29.7 pg (27.0-31.0); Mean Platelet Volume 9.2 fL (7.4-10.4); Nucleated Red Blood Cells % 0 % (-); Platelet Count 142 10^3/uL (130-400); Red Blood Cell Count 3.74 10^6/uL (4.70-6.10); Red Cell Dist. Width 14.6 % (11.5-14.5); White Blood Cell Count 6.4 10^3/uL (4.8-10.8)
[2024-03-20 23:00] LABS: NT-proBNP 4140 pg/ml; Troponin I 0.168 ng/ml
[2024-03-20 23:00] LABS: ALT (SGPT) 13 U/L (0-50); AST (SGOT) 20 U/L (17-59); Albumin 3.8 g/dl (3.5-5.0); Alkaline Phosphatase 73 U/L (38-126); Blood Urea Nitrogen 19 mg/dl (9-20); Calcium 8.9 mg/dl (8.4-10.2); Carbon Dioxide 24 mmol/L (22-30); Chloride 108 mmol/L (98-107); Glucose 121 mg/dl (70-99); Potassium 4.4 mmol/L (3.5-5.1); Sodium 142 mmol/L (135-145); Total Bilirubin 0.6 mg/dl (0.2-1.3); Total Protein 5.8 g/dl (6.3-8.2); eGFR 48.65
[2024-03-21] MEDS: LASIX 40 MG IV (00:12)
[2024-03-21 01:19] LABS: Troponin I 0.167 ng/ml
== END 2024-03-21 02:13 | disposition home or self-care (01) ==
LOC: EMR 20:37
PROVIDERS: Physician Assistant; EMERGENCY PHYSICIAN Emergency Medicine; FAMILY PHYSICIAN Family Medicine
DX: R07.89 Other chest pain (principal); I48.91 Unspecified atrial fibrillation; I25.10 Atherosclerotic heart disease of native coronary artery without angina pectoris; I11.0 Hypertensive heart disease with heart failure; I50.31 Acute diastolic (congestive) heart failure; E11.36 Type 2 diabetes mellitus with diabetic cataract; E78.00 Pure hypercholesterolemia, unspecified; G47.30 Sleep apnea, unspecified; I34.0 Nonrheumatic mitral (valve) insufficiency; J44.9 Chronic obstructive pulmonary disease, unspecified; K21.9 Gastro-esophageal reflux disease without esophagitis; Z79.899 Other long term (current) drug therapy; Z85.828 Personal history of other malignant neoplasm of skin; Z87.891 Personal history of nicotine dependence; Z90.49 Acquired absence of other specified parts of digestive tract; Z95.1 Presence of aortocoronary bypass graft; Z95.5 Presence of coronary angioplasty implant and graft
CPT/HCPCS: 99283; 96374; 71046; 80053; 83880; 84484; 85025; 93005

== ENCOUNTER 2024-05-09 22:23 | Inpatient (IN) | payer MEDICARE, SELFPAY ==
[2024-05-09] VITALS (7 sets, daily range): BP systolic 118–155; BP diastolic 68–87; PULSE 2–67; BMI 40.3
--- NOTE | 2024-05-09 16:28 | ED.GENMED ---
ED Provider Triage
<Camila Villa NP - Last Filed: 05/10/24 13:23>
-
Patient seen by provider in Triage?: Seen in Triage
Attestation: A medical screening examination has been initiated by a qualified medical provider. Based on the assessment performed at this time, it has been determined that an emergent medical condition may exist and the patient has been informed
that further medical evaluation and possible additional diagnostic testing may be needed.
HPI: 88-year-old male here for shortness of breath, denies CP. his doctors have been trying to regulate his Lasix over past several weeks.
Seen at [facility] at Dr. Lima's office, seen by Rebeca LUND, sent here for eval.
[facility] Nurse called Thursday and made appt for today due to weight gain and SOB with exertion.
Here a month ago for same.
GENERAL: Alert , in no apparent distress
EYE: No visual abnormalities.
ENT: No visible abnormalities.
LUNGS: No acute respiratory distress. Lungs CTA
CARDIAC: Irregular controlled rate, +murmur.
NEUROLOGICAL: Alert and oriented
SKIN: Skin intact. No visible changes.
MUSCULOSKELETAL: Moving extremities normally
PSYCH: Normal and appropriate interaction.
This is a medical evaluation conducted in person to initiate diagnostic evaluation and provide initial therapeutics. Please see further documentation by the treating clinician.
History of Present Illness
<Camila Villa [employer] - Last Filed: 05/10/24 13:23>
General
Chief Complaint: Cardiac Symptoms
Time Seen by Provider: 05/09/24 20:12
<Rayray Meadows DO - Last Filed: 05/09/24 20:45>
General
Source: patient
History of Present Illness
History of Present Illness:
88-year-old male presents to the emergency room complaining of shortness of breath, weight gain, edema. 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
oral Lasix. Patient endorses shortness of breath with exertion. Cardiology notes suggest he has gained 10 pounds in a short period of time. Patient denies any chest pain.
Past History
<Camila Villa [employer] - Last Filed: 05/10/24 13:23>
Past History
ED Past Medical History: CAD, Cancer (Skin CA), CHF, COPD, GERD, HTN, Hypercholesterolemia, NIDDM, CA, Psychiatric (Claustrophobia) and Other (Neuropathy, numbness and tingling in the arms and legs. Sleep apnea, Mitral regurg, Ulcers)
ED Past Surgical History: Appendectomy, Cardiac (Stents, CABG, ), Orthopedic (Bilateral knee's and left hip and right hip replacement, Foot surgery, Torn meniscus) and Other (Cataracts, Myringotomy tube left ear)
Social History
Tobacco: Former smoker
Alcohol: Occasional
Personal:
Living: alone
Phy Exam
<Rayray Meadows DO - Last Filed: 05/09/24 20:45>
Physical Exam
Physical Exam:
General: Awake, Alert, Oriented X3. No acute distress.
Vitals: unremarkable
Head: Atraumatic
Eyes: Pupils equal, EOMI
Throat: Airway intact, no exudates
Neck: Trachea midline
Lungs: Crackles bilateral bases
Heart: Regular rate, 3/6 systolic ejection murmur
Abd: Soft, Nontender, No pulsatile mass
Neuro: Nonfocal
Skin: Warm, dry, no rash
Extremities: pulses equal b/l, 2+ edema
Course
<Camila Villa, [employer] - Last Filed: 05/10/24 13:23>
Orders/Labs/Results
Orders:
Orders
05/09/24 Dinner
2000 calorie (17 carb) Diabetic
At Your Request: Limited Participation
Diabetic Diet: Sodium, 2 Gram
05/09/24 16:24
Electrocardiogram (*1) Urgent
Reason for Study: Shortness of Breath
EKG- Treatment ONCE
05/09/24 16:52
CR Chest - 2 Views Urgent
Comment:
Reason For Exam: SOB estephania gain
05/09/24 16:58
Complete Blood Count/With Diff Urgent
Comprehensive Metabolic Panel Urgent
NT-proBNP Urgent
Troponin I Urgent
05/09/24 20:40
Furosemide [Lasix] 60 mg IV NOW STA
05/09/24 21:37
Admit/Transfer Patient As Directed
Co-Sign Provider:
Level of Care: Inpatient admission
Assign to:: Telemetry
Physician / Group: Nando
Diagnosis: CHF
Reason for Telemetry: Acute Heart Failure
Date to Stop Telemetry: 05/12/24
Time to Stop Telemetry: 11:00
Reason for Hospitalization: IV diuretics, nebs
Expected length of stay greater than two midnights?: Yes
ELOS- Estimated Length of Stay in days: 3
I certify the patient meets the requirements for IP care: Yes
PRN Pain Medication Management As Directed
May give lesser potent ordered pain med per pt: Yes
preference::
Protocol:: Medication orders for pain may be administered in a
manner that supports deferring to patient preference
when the pt is:
- Requesting an ordered lesser potent pain medication.
Least to most potent pain medications are defined
as: acetaminophen < NSAID < tramadol < opioids
(morphine, oxycodone, hydromorphone).
- Requesting a lesser dose of the same medication IF
ORDERED.
- Requesting a less intrusive route of administration
if both routes are prescribed by the provider (PO <
IV).
05/09/24 21:40
Code Status As Directed
Resuscitation Status: Full Code
05/09/24 22:48
Dextrose 50%-Water [Dextrose 50% Syringe] 12.5 grams IV [id number] PRN
Glucagon [GlucaGen] 1 mg IM PRN PRN
Ipratropium/Albuterol Sulfate [Duoneb] 3 ml INH R Q4HPRN PRN
Pregabalin [Lyrica] 100 mg PO TID
Rosuvastatin Calcium [Crestor] 40 mg PO HS
Tamsulosin [Flomax] 0.4 mg PO HS
insulin glargine [Basaglar KwikPen U-100 Insulin] 10 unit SC HS
05/09/24 22:48
CARDIOLOGY CONSULT Routine
Consulting Provider: Felipe Mathis
Was physician already notified: No
Reason for consult: CHF
Consult Notification Routine
Specialty to Notify: Cardiology
Date consulting provider notified: 05/10/24
Time consulting provider notified: 07:57
Notified:: Provider
Comment: tt sent to dr mathis
HF DIETARY CONSULT Routine
HF EDUCATOR CONSULT Routine
Comment:
Activity As Directed
Activity Level: Out of Bed-Early Mobility
Bedside Glucose Monitoring As Directed
Frequency: AC&HS
Additional Instructions:: Change to q6h if pt on TPN, tube feeding or not eating
Intake/ Output As Directed
Frequency: Per unit guidelines
Patient Education As Directed
Type: CHF folder
Comment: give on admission. Document in Interdisciplinary Education record
Sleep Apnea Assessment by RN As Directed
Comment:
Physician Instructions:
Vital Signs As Directed
Frequency: Other
Additional Instructions:: Q12 or per unit guidelines if more frequent.
Weight As Directed
Frequency: Daily
Type of Scale: Standing Scale
Comment: Daily morning weight. If unable to stand, use balanced bed scale.
Weight As Directed
Frequency: Once
Type of Scale: Standing Scale
Comment: Upon Admission. If unable to stand, use balanced bed scale.
Bipap [RESP] Routine
Patient to use own unit?: No
Inspiratory Pressure (cm H2O): 12
Expiratory Pressure (cm H2O): 8
Pulse Ox/cont/shift [RESP] Routine
Quantity: 1
Special Instructions: Daily pulse oximetry at rest. If greater than 92% at rest also obtain pulse oximetry
while ambulating as tolerated.
05/09/24 23:37
Troponin I Q6H
05/10/24 04:57
Complete Blood Count/No Diff IN AM
Glycohemoglobin (HgbA1c) IN AM
05/10/24 04:58
Basic Metabolic Panel IN AM
Magnesium IN AM
Troponin I Q6H
05/10/24 07:30
Insulin Aspart Corrective Low [Novolog Flexpen-Low Resistance] See Protocol SC AC
05/10/24 08:00
Apixaban [Eliquis] 5 mg PO BID
Budesonide [Pulmicort] 0.5 mg INH R BID
Furosemide [Lasix] 40 mg IV BID AT 0800,1600
Ipratropium/Albuterol Sulfate [Duoneb] 3 ml INH R QID
Losartan [Cozaar] 50 mg PO DAILY
Metoprolol Xl [Toprol Xl] 12.5 mg PO DAILY
Pantoprazole [Protonix] 40 mg PO DAILY
Paroxetine [Paxil] 10 mg PO DAILY
05/12/24 11:00
DC Protocol for Telemetry ONCE
Abnormal Lab Results
05/09/24
16:58
RBC 3.97 L 10^6/uL
(4.70-6.10)
Hgb 11.3 L g/dL
(13.0-18.0)
Hct 33.9 L %
(39.0-52.0)
RDW 15.2 H %
(11.5-14.5)
Monocytes % 9.5 H %
(1.7-9.3)
BUN 29 H mg/dl
(9-20)
Glucose 138 H mg/dl
(70-99)
Troponin I 0.035 H* ng/ml
05/09/24 16:58
05/09/24 16:58
Vital Signs
Initial and Last Documented VS:
Initial Vital Signs
Temp Pulse Resp BP Pulse Ox
98.2 F 70 16 118/68 98
05/09/24 16:24 05/09/24 16:24 05/09/24 16:24 05/09/24 16:24 05/09/24 16:24
Last Documented Vital Signs
Temp Pulse Resp BP Pulse Ox
97.9 F 88 14 122/68 96
05/10/24 10:47 05/10/24 11:19 05/10/24 11:19 05/10/24 10:47 05/10/24 10:47
<Rayray Meadows, DO - Last Filed: 05/09/24 20:45>
Orders/Labs/Results
Orders:
Orders
05/09/24 Dinner
2000 calorie (17 carb) Diabetic
At Your Request: Limited Participation
Diabetic Diet: Sodium, 2 Gram
05/09/24 16:24
Electrocardiogram (*1) Urgent
Reason for Study: Shortness of Breath
EKG- Treatment ONCE
05/09/24 16:52
CR Chest - 2 Views Urgent
Comment:
Reason For Exam: SOB estephania gain
05/09/24 16:58
Complete Blood Count/With Diff Urgent
Comprehensive Metabolic Panel Urgent
NT-proBNP Urgent
Troponin I Urgent
05/09/24 20:40
Furosemide [Lasix] 60 mg IV NOW STA
05/09/24 21:37
Admit/Transfer Patient As Directed
Co-Sign Provider:
Level of Care: Inpatient admission
Assign to:: Telemetry
Physician / Group: Nando
Diagnosis: CHF
Reason for Telemetry: Acute Heart Failure
Date to Stop Telemetry: 05/12/24
Time to Stop Telemetry: 11:00
Reason for Hospitalization: IV diuretics, nebs
Expected length of stay greater than two midnights?: Yes
ELOS- Estimated Length of Stay in days: 3
I certify the patient meets the requirements for IP care: Yes
PRN Pain Medication Management As Directed
May give lesser potent ordered pain med per pt: Yes
preference::
Protocol:: Medication orders for pain may be administered in a
manner that supports deferring to patient preference
when the pt is:
- Requesting an ordered lesser potent pain medication.
Least to most potent pain medications are defined
as: acetaminophen < NSAID < tramadol < opioids
(morphine, oxycodone, hydromorphone).
- Requesting a lesser dose of the same medication IF
ORDERED.
- Requesting a less intrusive route of administration
if both routes are prescribed by the provider (PO <
IV).
05/09/24 21:40
Code Status As Directed
Resuscitation Status: Full Code
05/09/24 22:48
Dextrose 50%-Water [Dextrose 50% Syringe] 12.5 grams IV [id number] PRN
Glucagon [GlucaGen] 1 mg IM PRN PRN
Ipratropium/Albuterol Sulfate [Duoneb] 3 ml INH R Q4HPRN PRN
Pregabalin [Lyrica] 100 mg PO TID
Rosuvastatin Calcium [Crestor] 40 mg PO HS
Tamsulosin [Flomax] 0.4 mg PO HS
insulin glargine [Basaglar KwikPen U-100 Insulin] 10 unit SC HS
05/09/24 22:48
CARDIOLOGY CONSULT Routine
Consulting Provider: Felipe Mathis
Was physician already notified: No
Reason for consult: CHF
Consult Notification Routine
Specialty to Notify: Cardiology
Date consulting provider notified: 05/10/24
Time consulting provider notified: 07:57
Notified:: Provider
Comment: tt sent to dr mathis
HF DIETARY CONSULT Routine
HF EDUCATOR CONSULT Routine
Comment:
Activity As Directed
Activity Level: Out of Bed-Early Mobility
Bedside Glucose Monitoring As Directed
Frequency: AC&HS
Additional Instructions:: Change to q6h if pt on TPN, tube feeding or not eating
Intake/ Output As Directed
Frequency: Per unit guidelines
Patient Education As Directed
Type: CHF folder
Comment: give on admission. Document in Interdisciplinary Education record
Sleep Apnea Assessment by RN As Directed
Comment:
Physician Instructions:
Vital Signs As Directed
Frequency: Other
Additional Instructions:: Q12 or per unit guidelines if more frequent.
Weight As Directed
Frequency: Daily
Type of Scale: Standing Scale
Comment: Daily morning weight. If unable to stand, use balanced bed scale.
Weight As Directed
Frequency: Once
Type of Scale: Standing Scale
Comment: Upon Admission. If unable to stand, use balanced bed scale.
Bipap [RESP] Routine
Patient to use own unit?: No
Inspiratory Pressure (cm H2O): 12
Expiratory Pressure (cm H2O): 8
Pulse Ox/cont/shift [RESP] Routine
Quantity: 1
Special Instructions: Daily pulse oximetry at rest. If greater than 92% at rest also obtain pulse oximetry
while ambulating as tolerated.
05/09/24 23:37
Troponin I Q6H
05/10/24 04:57
Complete Blood Count/No Diff IN AM
Glycohemoglobin (HgbA1c) IN AM
05/10/24 04:58
Basic Metabolic Panel IN AM
Magnesium IN AM
Troponin I Q6H
05/10/24 07:30
Insulin Aspart Corrective Low [Novolog Flexpen-Low Resistance] See Protocol SC AC
05/10/24 08:00
Apixaban [Eliquis] 5 mg PO BID
Budesonide [Pulmicort] 0.5 mg INH R BID
Furosemide [Lasix] 40 mg IV BID AT 0800,1600
Ipratropium/Albuterol Sulfate [Duoneb] 3 ml INH R QID
Losartan [Cozaar] 50 mg PO DAILY
Metoprolol Xl [Toprol Xl] 12.5 mg PO DAILY
Pantoprazole [Protonix] 40 mg PO DAILY
Paroxetine [Paxil] 10 mg PO DAILY
05/12/24 11:00
DC Protocol for Telemetry ONCE
Abnormal Lab Results
05/09/24
16:58
RBC 3.97 L 10^6/uL
(4.70-6.10)
Hgb 11.3 L g/dL
(13.0-18.0)
Hct 33.9 L %
(39.0-52.0)
RDW 15.2 H %
(11.5-14.5)
Monocytes % 9.5 H %
(1.7-9.3)
BUN 29 H mg/dl
(9-20)
Glucose 138 H mg/dl
(70-99)
Troponin I 0.035 H* ng/ml
05/09/24 16:58
05/09/24 16:58
Vital Signs
Initial and Last Documented VS:
Initial Vital Signs
Temp Pulse Resp BP Pulse Ox
98.2 F 70 16 118/68 98
05/09/24 16:24 05/09/24 16:24 05/09/24 16:24 05/09/24 16:24 05/09/24 16:24
Last Documented Vital Signs
Temp Pulse Resp BP Pulse Ox
97.9 F 88 14 122/68 96
05/10/24 10:47 05/10/24 11:19 05/10/24 11:19 05/10/24 10:47 05/10/24 10:47
<Camila Villa NP - Last Filed: 05/10/24 13:23>
*Critical Care Note
Total Time (30-74mins, 75-104mins- exclusive of procedures): Not Applicable
<Rayray Meadows DO - Last Filed: 05/09/24 20:45>
*Pulse Oximetry
Patient hypoxic: no
*EKG
Interpreted by ED Provider?: Yes
Heart Rate: 71
Rate: normal
Rhythm: sinus
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
ED Attending Note
<Camila Villa [employer] - Last Filed: 05/10/24 13:23>
-
Portions of this chart may have been created with voice recognition software.� Occasional wrong word or��sound alike� substitutions may have occurred due to the inherent limitations of voice recognition software.
Discharge Plan
Departure
Patient Disposition: Admit
Date of Disposition: 05/09/24
Time of Disposition: 20:44
Admit to: Med/Surg
Presentation/result/management discussed w/ accepting MD/DO: Hospitalist
Condition: Fair
Discharge Problem:
CHF (congestive heart failure)
Interventions
Interventions:
*Risk Screen - Suicide Last Done: 05/09/24 22:57
*General Assessment Last Done: 05/09/24 20:34
*Neglect/Abuse Screening Last Done: 05/09/24 16:24
ED- Fall Risk Assessment Last Done: 05/09/24 20:35
*ED COVID-19 Vaccine History Last Done: 05/09/24 20:34
*Nursing Disposition Last Done: 05/09/24 22:35
ED- Pulmonary Assessment Last Done: 05/09/24 20:34
ED- Cardiac Assessment Last Done: 05/09/24 20:34
Discharge Date and Time
Discharge Date/Time: 05/09/24 22:35
[2024-05-09 17:05] LABS: % Basophils 0.5 % (0-2); % Eosinophils 1.7 % (0-6); % Immature Granulocytes 0.5 % (0-0.5); % Lymphocytes 31.6 % (20.5-51.1); % Monocytes 9.5 % (1.7-9.3); % Neutrophils 56.2 % (42.2-75.2); Absolute Eosinophils 0.1 10^3/uL (0-0.7); Absolute Monocytes 0.6 10^3/uL (0.1-0.6); Absolute Neutrophils 3.6 10^3/uL (1.4-6.5); Hematocrit 33.9 % (39.0-52.0); Hemoglobin 11.3 g/dL (13.0-18.0); Mean Corp Hgb Conc. 33.3 g/dL (33.0-37.0); Mean Corpuscular Hgb 28.5 pg (27.0-31.0); Mean Corpuscular Volume 85.4 fL (80.0-94.0); Mean Platelet Volume 8.8 fL (7.4-10.4); Nucleated Red Blood Cells % 0 % (-); Platelet Count 135 10^3/uL (130-400); Red Blood Cell Count 3.97 10^6/uL (4.70-6.10); Red Cell Dist. Width 15.2 % (11.5-14.5); White Blood Cell Count 6.4 10^3/uL (4.8-10.8)
[2024-05-09 17:23] LABS: ALT (SGPT) 18 U/L (0-50); AST (SGOT) 24 U/L (17-59); Albumin 4.6 g/dl (3.5-5.0); Alkaline Phosphatase 67 U/L (38-126); Blood Urea Nitrogen 29 mg/dl (9-20); Calcium 8.9 mg/dl (8.4-10.2); Carbon Dioxide 25 mmol/L (22-30); Chloride 105 mmol/L (98-107); Glucose 138 mg/dl (70-99); Potassium 4.3 mmol/L (3.5-5.1); Sodium 144 mmol/L (135-145); Total Bilirubin 0.3 mg/dl (0.2-1.3); Total Protein 6.7 g/dl (6.3-8.2); eGFR 53.17
[2024-05-09 17:39] LABS: NT-proBNP 1680 pg/ml; Troponin I 0.035 ng/ml
--- NOTE | 2024-05-09 21:20 | HPS.HSE ---
Addendum entered and electronically signed by Luis Collier DO 05/09/24 22:12:
Patient seen and examined independently. Agree with findings and plan as set forth by Padmini Ramirez PA-C.
Patient is an 88y M with PMH significant for ASCVD, A-Fib, DM-II and CKD who presents to ED from his Cardiology office for evaluation of CHF. Patient with recent DIANA, weight gain and LE edema and has had outpatient diuretic doses adjusted by
Cardiology. Patient states that he has appreciated some improvement; however, his weight continues to be elevated and he continues to complain of dyspnea with any activity. He was referred to the ED today by Cardiology for admission and IV
diuresis.
Ass:
Acute on Chronic HFpEF
COPD
Paroxysmal Atrial Fibrillation
ASCVD
Benign Hypertension
DM-II with Peripheral Neuropathy and CKD
CKD III
BPH
Anxiety / depression
Morbid Obesity due to excess calories
Plan:
Admit for further evaluation and treatment.
CXR and BNP appear improved from prior; however, weight is increased significantly and patient reports DIANA.
IV Lasix BID and follow I/Os, daily weights, etc.
Cardiology evaluation for additional recommendations.
Add nebs for possible component of COPD.
Follow for clinical improvement.
Continue usual outpatient med regimen.
Continue usual BiPAP.
Original Note:
Family Physician
-
Family Physician:
Chief Complaint
-
Shortness of Breath and Weight Gain
History of Present Illness
Patient is an 88 y/o male past medical history of CAD, CHF, Paroxysmal A-Fib, CKD and DM who presents with shortness of breath and weight gain. Patient was referred to the ED by his contribution solicitor office due to persistent dyspnea on exertion, lower
extremity edema and persistent weight elevation from his dry weight despite outpatient oral diuretics. Patient notes at baseline he take Lasix 40mg BID. This was increased to 80mg BID for a few days last week, and patient notes one time he took
120mg. He denies chest pain, palpitations or orthopnea.
Medical History
Past Medical History
Past Medical History: Reports Other
Additional Past Medical History:
Coronary Artery Disease s/p CABG
Chronic HFpEF
Paroxysmal Atrial Fibrillation
Essential Hypertension
Hyperlipidemia
Diabetes Mellitus, Type II
CKD Stage 3A
COPD
Obstructive Sleep Apnea
Obesity
Depression
BPH
Past Surgical History: Reports Other
Additional Past Surgical History:
CABG
Bilateral Hip Replacements
Bilateral Knee Replacements
Foot Surgery
Appendectomy
Social History
Tobacco: Former Smoker (Quit in 1972)
Family History
Family History: Not pertinent
Allergies / Home Medications
Allergies reflects when Allergies were last updated in [employer].
Home Medications with original date entered in [employer]
Allergy/Medication List:
Allergies
Allergy/AdvReac Type Severity Reaction Status Date / Time
No Known Allergies Allergy Verified 05/09/24 16:26
Home Medications
albuterol sulfate 90 mcg/actuation aerosol inhaler 2 puff inhalation R Q4HPRN PRN SHORTNESS OF BREATH 08/03/20
cyanocobalamin (vitamin B-12) 1,000 mcg tablet 1,000 mcg PO QPM Supplement 08/03/20
esomeprazole magnesium 40 mg capsule,delayed release (Nexium) 40 mg PO DAILY Gastrointestinal issue 08/03/20
fppuggldoiy-uqsjmtsoh-gmi C-Mn 750 mg-600 mg-55 mg-5 mg tablet 1 tab PO BID Supplement 08/03/20
loratadine 10 mg tablet 10 mg PO DAILY Allergies 08/03/20
multivitamin with folic acid 400 mcg tablet (Tab-A-Evie) 1 tab PO QPM Supplement 08/03/20
paroxetine HCl 12.5 mg tablet,extended release 24 hr 12.5 mg PO DAILY Depression 08/03/20
rosuvastatin 40 mg tablet (Crestor) 40 mg PO HS High cholesterol 08/03/20
ascorbic acid (vitamin C) 500 mg tablet (Vitamin C) 500 mg PO QPM Supplement 03/07/24
insulin glargine 100 unit/mL (3 mL) subcutaneous pen (Basaglar KwikPen U-100 Insulin) 10 unit SC HS Diabetes 03/07/24
pregabalin 100 mg capsule 100 mg PO TID Pain 03/07/24
tamsulosin 0.4 mg capsule 0.4 mg PO HS Urinary Issue 03/07/24
umeclidinium 62.5 mcg-vilanterol 25 mcg/actuation powdr for inhalation (Anoro Ellipta) 1 inh inhalation R DAILY Lung/Breathing Issues 03/07/24
apixaban 5 mg tablet (Eliquis) 5 mg PO BID #60 tabs 03/10/24
metoprolol succinate 25 mg tablet,extended release 24 hr 12.5 mg (1/2 x 25 mg) PO DAILY #30 tabs 03/10/24
armodafinil 150 mg tablet 150 mg PO DAILY 05/09/24
budesonide 32 mcg/actuation nasal spray 2 spray intranasal DAILY 05/09/24
furosemide 40 mg tablet 40 mg PO BID 05/09/24
losartan 50 mg tablet 50 mg PO DAILY 05/09/24
vitamin B complex 1 tab PO QPM 05/09/24
Review of Systems
-
A 12 point ROS was completed and negative except as noted: Yes
Constitutional: Denies Fever or Chills
Respiratory: Reports Trouble Breathing; Denies Cough
Cardiac: Denies Chest Pain or Palpitations
Physical Exam
Vital Signs
Vital Signs
Temp Pulse Resp BP Pulse Ox
97.9 F 68 18 121/71 98
05/09/24 18:16 05/09/24 18:16 05/09/24 20:35 05/09/24 18:16 05/09/24 20:34
Physical Exam
General: Comfortable and Conversant
HEENT: Anicteric and Moist mucous membranes
Respiratory: Wheezes (Diffuse) and Non Labored Respirations
Cardiac: S1/S2, Regular Rhythm and Murmur
GI: Soft, Non Tender and Other (Protuberant)
Rectal: Deferred by Provider
Musculoskeletal: No Clubbing, No Cyanosis and Other (+2 pitting edema bilateral lower extremities)
Skin: Warm and Dry
Neuro: Awake, Alert, Oriented and Nonfocal/grossly intact
Psych: Calm
Laboratory Results
-
05/09/24 16:58
05/09/24 16:58
Laboratory Results
Total Bilirubin 0.3 mg/dl (0.2-1.3) 05/09/24 16:58
AST 24 U/L (17-59) 05/09/24 16:58
ALT 18 U/L (0-50) 05/09/24 16:58
Alkaline Phosphatase 67 U/L (38-126) 05/09/24 16:58
Troponin I 0.035 ng/ml H* 05/09/24 16:58
Data Reviewed
-
Diagnostic Radiology: Report Reviewed by me
Lab Data: Labs Reviewed by me
Old Records: Reviewed
Impression/Plan
-
Acute on Chronic HFpEF
-Consult Cardiology
-Continue Lasix 40mg IV BID
-Monitor Is&Os and Daily Weights
COPD, suspect component of mild acute exacerbation
-Add Pulmicort Neb and DuoNeb
Paroxysmal Atrial Fibrillation
-Continue Eliquis
-Continue metoprolol for rate control
Essential Hypertension
-Continue losartan
Hyperlipidemia
-Continue Crestor
Diabetes Mellitus, Type II
-Continue Lantus 10 units HS
-Monitor sugars and continue coverage insulin
Diabetic Neuropathy
-Continue Lyrica
CKD Stage 3A
-Monitor creatinine closely while on diuretics
Depression
-Continue Paxil
BPH
-Continue Flomax
Obstructive Sleep Apnea
-Continue BiPAP
Coronary Artery Disease s/p CABG
DVT proph: Eliquis
Code Status: Full Code
[2024-05-09] MEDS: LASIX 60 MG IV (21:34)
--- NOTE | 2024-05-09 23:00 | PTCARENOTE ---
Pt received from ED at 2245. Pt AAOX3, VSS, and able to ambulate into room with assistance. Pt receptive to room, bed rails and call weldon. Pt bed in lowest position and call weldon within reach. Pt educated on importance of call weldon usage, pt relays
understanding and cooperation. Will continue with current plan of care.
[2024-05-09] MEDS: FLOMAX 0.4 MG PO (23:34)
[2024-05-09] MEDS: LYRICA 100 MG PO (23:34)
[2024-05-09] MEDS: CRESTOR 40 MG PO (23:34)
[2024-05-09 23:52] LABS: Glucose - Point of Care 132 mg/dl (70-99)
[2024-05-09] MEDS: LANTUS 0.1 UNITS SC (23:52)
[2024-05-10] VITALS (8 sets, daily range): BP systolic 104–144; BP diastolic 57–74; PULSE 2–69; BMI 37.7
[2024-05-10 05:07] LABS: Hematocrit 36.6 % (39.0-52.0); Hemoglobin 12.2 g/dL (13.0-18.0); Mean Corp Hgb Conc. 33.3 g/dL (33.0-37.0); Mean Corpuscular Volume 87.1 fL (80.0-94.0); Platelet Count 121 10^3/uL (130-400); White Blood Cell Count 7.4 10^3/uL (4.8-10.8)
[2024-05-10 05:32] LABS: Blood Urea Nitrogen 28 mg/dl (9-20); Calcium 9.2 mg/dl (8.4-10.2); Carbon Dioxide 28 mmol/L (22-30); Chloride 104 mmol/L (98-107); Estimated Creatinine Clearance 52 ml/min; Glucose 144 mg/dl (70-99); Potassium 3.9 mmol/L (3.5-5.1); Sodium 145 mmol/L (135-145); eGFR 53.17
[2024-05-10 05:44] LABS: Troponin I 0.049 ng/ml
[2024-05-10] MEDS: PULMICORT 0.5 MG INH ×2 (07:30→19:12)
[2024-05-10] MEDS: DUONEB 3 ML INH ×4 (07:30→19:12)
[2024-05-10 07:48] LABS: Glucose - Point of Care 137 mg/dl (70-99)
--- NOTE | 2024-05-10 08:32 | CON.CAR ---
Addendum entered and electronically signed by Kuldip Lima MD 05/10/24 11:22:
I saw and examined the patient.
The FIELD TRAINER or PA's note was reviewed and I agree with the note.
Comment: General: Well developed, well nourished in NAD.
Neck: Supple, no JVD, HJR, carotids +2 B/L, no bruits bilaterally.
Heart: Non displaced PMI, RRR, 2/6 basal systolic murmur, No S3, S4, no rubs.
Lungs: Scattered rhonchi
Extremities: No clubbing, cyanosis or edema bilaterally.
Neuro: Grossly nonfocal, awake, alert and oriented x3.
Reed has a history of chronic diastolic CHF, CAD status post remote CABG in the and prior PCI, moderate aortic stenosis, hypertension, diabetes, COPD. He presented with progressive dyspnea on exertion weight gain fatigue and lower extremity
edema. He is admitted with acute diastolic CHF.. He feels better at present with IV Lasix.
Will continue IV Lasix at least another 24 hours. Might be able to consider change to oral Lasix on 05/11. He needs to ambulate however prior to discharge. Discussed with patient and son at bedside.
Original Note:
Consultation
Consultation Request
Date/Time Consultation Requested: 05/09/2024
Date/Time Consultation Performed: 05/10/2024
Requesting Provider: Dr. Collier
Performing Provider: Susi Patrick PA-C for Dr. Kuldip Lima
Reason for Consultation: DIANA, weight gain, edema
Medical History
-
Chief Complaint: DIANA, weight gain, edema
History of Present Illness:
Patient is reporting an 88-year-old male with past medical history of CAD status post remote CABG in the and prior PCI, chronic HFpEF, CKD, COPD, obesity, BRAYDON on CPAP, moderate aortic stenosis, hypercholesterolemia, diabetes with diabetic
neuropathy who presented [facility]ED 05/09/2024 with progressively worsening dyspnea on exertion, weight gain, fatigue and lower extremity edema despite up titration of outpatient diuretics. Patient admits to noncompliance with his diet eating lunch meats
and high sodium foods such as Prydeinig and oyster soup as an outpatient. Chest x-ray showed cardiomegaly with mild interstitial edema and trace left pleural effusion. proBNP 1680. Troponin initially 0.035->0.049. EKG showed sinus rhythm with
first-degree AV block/right bundle branch block. No ischemic changes. Patient was given 60 mg IV Lasix in emergency department and reports good response. Patient denies chest pain, shortness of breath at rest, palpitations, dizziness. He reports
last night he was able to sleep well with his CPAP without orthopnea or PND
PMH:
Chronic heart failure with preserved EF
CAD status post remote CABG and prior PCI
CKD
Aortic stenosis
Hypertension
Hyperlipidemia
Diabetes with diabetic neuropathy
COPD
Obesity
BRAYDON on CPAP
GERD
BPH
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
Chronic back pain
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
Remote former smoker
Past Medical History
Past Medical History: Other (in HPI)
Past Surgical History: Appendectomy, Cardiac (CV 02/2024) and Orthopedic (Back surgery 11/2017, left hip replacement 11/2018, right hip replacement 04/2023, bilateral knee replacements, foot surgery)
Social History
Tobacco: Former Smoker (Quit 1972)
Alcohol: Occasional
Drug: None
Personal:
Living: Assisted Living
Employment: Retired
Family History
Family History: Reviewed & Not Pertinent
Allergies / Home Medications
Allergy/AdvReac Type Severity Reaction Status Date / Time
No Known Allergies Allergy Verified 05/09/24 16:26
�Medication �Instructions �Recorded �Confirmed �Type
albuterol sulfate 90 mcg/actuation 2 puff inhalation R Q4HPRN PRN 08/03/20 05/09/24 History
aerosol inhaler SHORTNESS OF BREATH
cyanocobalamin (vitamin B-12) 1,000 mcg PO QPM Supplement 08/03/20 05/09/24 History
1,000 mcg tablet
esomeprazole magnesium 40 mg 40 mg PO DAILY Gastrointestinal 08/03/20 05/09/24 History
capsule,delayed release (Nexium) issue
wdbfmotqrpk-uqydabhsq-qmt C-Mn 750 1 tab PO BID Supplement 08/03/20 05/09/24 History
mg-600 mg-55 mg-5 mg tablet
loratadine 10 mg tablet 10 mg PO DAILY Allergies 08/03/20 05/09/24 History
multivitamin with folic acid 400 1 tab PO QPM Supplement 08/03/20 05/09/24 History
mcg tablet (Tab-A-Evie)
paroxetine HCl 12.5 mg 12.5 mg PO DAILY Depression 08/03/20 05/09/24 History
tablet,extended release 24 hr
rosuvastatin 40 mg tablet (Crestor) 40 mg PO HS High cholesterol 08/03/20 05/09/24 History
ascorbic acid (vitamin C) 500 mg 500 mg PO QPM Supplement 03/07/24 05/09/24 History
tablet (Vitamin C)
insulin glargine 100 unit/mL (3 10 unit SC HS Diabetes 03/07/24 05/09/24 History
mL) subcutaneous pen (Basaglar
KwikPen U-100 Insulin)
pregabalin 100 mg capsule 100 mg PO TID Pain 03/07/24 05/09/24 History
tamsulosin 0.4 mg capsule 0.4 mg PO HS Urinary Issue 03/07/24 05/09/24 History
umeclidinium 62.5 mcg-vilanterol 1 inh inhalation R DAILY 03/07/24 05/09/24 History
25 mcg/actuation powdr for Lung/Breathing Issues
inhalation (Anoro Ellipta)
apixaban 5 mg tablet (Eliquis) 5 mg PO BID #60 tabs 03/10/24 05/09/24 Rx
metoprolol succinate 25 mg 12.5 mg (1/2 x 25 mg) PO DAILY #30 03/10/24 05/09/24 Rx
tablet,extended release 24 hr tabs
armodafinil 150 mg tablet 150 mg PO DAILY 05/09/24 05/09/24 History
budesonide 32 mcg/actuation nasal 2 spray intranasal DAILY 05/09/24 05/09/24 History
spray
furosemide 40 mg tablet 40 mg PO BID 05/09/24 05/09/24 History
losartan 50 mg tablet 50 mg PO DAILY 05/09/24 05/09/24 History
vitamin B complex 1 tab PO QPM 05/09/24 05/09/24 History
Review of Systems
-
History Source: Patient
All other systems: Negative unless noted
Physical Exam
Vital Signs
Temp Pulse Resp BP Pulse Ox
97.3 F 63 18 129/74 99
05/10/24 07:51 05/10/24 07:51 05/10/24 07:51 05/10/24 07:51 05/10/24 07:51
GEN: No distress, awake, Ox3, sitting on edge of bed
HEENT: supple, anicteric, mmm
LUNGS: CTA, no wheezes/rales, on room air
CV: Distant heart tones reg, S1/S2, 1/6 syst murmur, no rub or gallop
ABD: soft, BS+, NT/ND
EXT: Trace lower extremity edema edema
NEURO: Gross non-focal
SKIN: No rash, warm, dry, pink
Lab Results
05/10/24 04:57
05/10/24 04:58
Troponin I 0.049 ng/ml H* 05/10/24 04:58
Fhh-M-Ssmjaoktbuq Pept 1680 pg/ml 05/09/24 16:58
Impression / Plan
-
PCP: Reed Echavarria
Primary Fishing Vessel Captain: Dr. Lima
Impression:
Presented 05/09/2024 with dyspnea on exertion, weight gain, fatigue and lower extremity edema
Concern for acute on chronic heart failure with preserved EF, proBNP 1680
Paroxysmal atrial fibrillation, new Dx 02/2024
s/p CV 03/10/2024
Abnormal troponin, suspected nonischemic myocardial injury
CAD status post remote CABG and prior PCI
Moderate
Hypertension
Hyperlipidemia
Diabetes with diabetic neuropathy
COPD
Obesity
BRAYDON on CPAP
GERD
BPH
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
Chronic back pain
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
Remote former smoker
Lexiscan nuclear stress test 08/2018: Imaging with small area of mildly decreased perfusion fixed in basal anterolateral segment that resolves with prone imaging consistent with STA, EF 58%, no evidence of significant CAD
ECHO 06/03/23: EF 50-55, no regional wall motion abnormalities, mild concentric LVH, moderate with peak/mean gradients 29/18 mmHg, BRENDA 1.2 cm�, mild AR
ECHO 03/08/24: EF 50 to 55%, mild MR, mild with peak/mean gradients 18/9 mmHg, mild AR, mild TR, dilated aortic root measuring 3.8 cm at sinuses of Valsalva and 3.5 cm at sinotubular junction with ascending aorta dilatation measuring 4.5 cm
[employer] 5-day monitor February 2024: 25% A-fib burden longest 3 hours, predominantly sinus rhythm.
Plan:
-Patient is an 88-year-old male who presented 05/09/2024 with progressively worsening dyspnea on exertion, weight gain, fatigue and lower extremity edema despite up titration of outpatient diuretic
-Acute on chronic heart failure with preserved ejection fraction, proBNP 1680. This is lower than previous admissions. Patient was provided 60 mg IV Lasix in emergency department
-Current weight 255 pounds which is 5 pounds higher than previous discharge weight in February 2024. Would continue IV diuresis Lasix 40 mg BID
-Patient admits to noncompliance with high sodium foods as outpatient. Discussed importance of adhering to low-sodium diet
-Continue losartan, Toprol. Patient previously was on Jardiance however discontinued 02/2024 admission due to BUDDY. Creatinine currently 1.3. Would consider adding back Jardiance or Farxiga if renal function allows.
-Replete K+
-Paroxysmal atrial fibrillation which was new diagnosis February 2024 status post cardioversion 03/10/2024. Patient wore outpatient monitor which showed 25% A-fib burden. Patient currently in sinus rhythm.
-Continue Toprol and Eliquis
-TSH WNL in February 2024
Abnormal troponin, initial 0.035 with mild trend upward, currently 0.049. Troponins have been in this range on previous admissions. Patient denies chest pain. Suspect suspected nonischemic myocardial injury secondary to acute heart failure
exacerbation. Consider for OP stress testing. last stress in 2018 without evidence of significant CAD.
Moderate aortic stenosis�continue outpatient surveillance monitoring
AAA, 4.5 cm, outpatient surveillance monitoring
HPI 05/10/2024:
Patient is reporting an 88-year-old male with past medical history of CAD status post remote CABG in the and prior PCI, chronic HFpEF, CKD, COPD, obesity, BRAYDON on CPAP, moderate aortic stenosis, hypercholesterolemia, diabetes with diabetic
neuropathy who presented DHED 05/09/2024 with progressively worsening dyspnea on exertion, weight gain, fatigue and lower extremity edema despite up titration of outpatient diuretics. Patient admits to noncompliance with his diet eating lunch meats
and high sodium foods such as Prydeinig and oyster soup as an outpatient. Chest x-ray showed cardiomegaly with mild interstitial edema and trace left pleural effusion. proBNP 1680. Troponin initially 0.035->0.049. EKG showed sinus rhythm with
first-degree AV block/right bundle branch block. No ischemic changes. Patient was given 60 mg IV Lasix in emergency department and reports good response. Patient denies chest pain, shortness of breath at rest, palpitations, dizziness. He reports
last night he was able to sleep well with his CPAP without orthopnea or PND
Data Reviewed
-
EKG: Report Reviewed by me, Discussed with Physician and Discussed with Patient
Radiology: Report Reviewed by me, Discussed with Physician and Discussed with Patient
Labs: Labs Reviewed by me, Discussed with Physician and Discussed with Patient
Old Records: Reviewed
[2024-05-10 09:02] LABS: Glycohemoglobin (HgbA1c) 6.1 % (4.0-5.6)
[2024-05-10] MEDS: NOVOLOG FLEXPEN-LOW RESISTANCE SC ×2 (09:08→17:18)
[2024-05-10] MEDS: PROTONIX 40 MG PO (09:15)
[2024-05-10] MEDS: ELIQUIS 5 MG PO ×2 (09:15→20:14)
[2024-05-10] MEDS: COZAAR 50 MG PO (09:15)
[2024-05-10] MEDS: TOPROL XL 12.5 MG PO (09:15)
[2024-05-10] MEDS: LYRICA 100 MG PO ×3 (09:15→22:40)
[2024-05-10] MEDS: LASIX 40 MG IV ×2 (09:15→17:18)
[2024-05-10] MEDS: KCL 40 MEQ PO (09:15)
[2024-05-10] MEDS: FLUSH (NSS) 2 FLUSH IV (09:16)
[2024-05-10] MEDS: PAXIL 10 MG PO (09:17)
--- NOTE | 2024-05-10 11:56 | W.PN.HOSP.TC ---
Today's Communication/Plan
-
Monitor vital signs
see plan
Continue with IV Lasix
Monitor renal function
Assessment / Plan
Assessment / Plan
General: Comfortable and Conversant
HEENT: Anicteric and Moist mucous membranes
Respiratory: Wheezes (Diffuse) and Non Labored Respirations
Cardiac: S1/S2, Regular Rhythm and Murmur
GI: Soft, Non Tender and Other (Protuberant)
Rectal: Deferred by Provider
Musculoskeletal: No Clubbing, No Cyanosis and Other (+2 pitting edema bilateral lower extremities)
Neuro: Awake, Alert, Oriented and Nonfocal/grossly intact
Psych: Calm
Acute on Chronic HFpEF
-Cardiology following
-Continue Lasix 40mg IV BID
-Monitor Is&Os and Daily Weights
COPD, suspect component of mild acute exacerbation
-Added Pulmicort Neb and DuoNeb
Monitor troponin elevation likely secondary to nonischemic myocardial injury
Paroxysmal Atrial Fibrillation
-Continue Eliquis
-Continue metoprolol for rate control
Essential Hypertension
-Continue losartan
Hyperlipidemia
-Continue Crestor
Diabetes Mellitus, Type II
-Continue Lantus 10 units HS
-Monitor sugars and continue coverage insulin
Diabetic Neuropathy
-Continue Lyrica
CKD Stage 3A
-Monitor creatinine closely while on diuretics
Depression
-Continue Paxil
BPH
-Continue Flomax
Obstructive Sleep Apnea
-Continue BiPAP
Coronary Artery Disease s/p CABG
DVT proph: Eliquis
Code Status: Full Code
I spent a total of 52 minutes with the patient or on the floor. More than 50% of this time involved counseling and coordination of care.
Anticipated Discharge: 24 - 48 hours
Subjective/Interval History
-
Date of Service: May 10, 2024
Denies chest pain
Objective Data
-
Labs:
Laboratory Results
05/10/24 05/10/24
04:57 04:58
WBC 7.4
Hgb 12.2 L
Hct 36.6 L
Plt Count 121 L
Sodium 145
Potassium 3.9
Chloride 104
Carbon Dioxide 28
BUN 28 H
Creatinine 1.3
Glucose 144 H
Calcium 9.2
Vital Signs:
Vital Signs
Temp Pulse Resp BP Pulse Ox
97.9 F 88 14 122/68 96
05/10/24 10:47 05/10/24 11:19 05/10/24 11:19 05/10/24 10:47 05/10/24 10:47
I&O
05/09/24 05/10/24 05/11/24
06:59 06:59 06:59
Intake Total 240 / 240
Balance 240 / 240
--- NOTE | 2024-05-10 12:36 | CM ---
Addendum entered by Lizandro Gutiérrez 05/10/24 12:45:
Copy of POA paperwork put on pt chart. gate clerk made aware via TT
Original Note:
Pt seen at bedside w/ DIL
Pt lives at [facility] in an apartment
Pt prev. independent w/ walker and cane.
Pt has shower chair and rails for additional support in the home as well as a BIPAP machine
Pt is current w/ [facility]. [facility] referral needed prior to d/c
Denies SNF hx
Denies financial insecurities
Address, contact and insurance verified
PCP: Dr. Reed Echavarria
[facility]
Pt currently receiving respiratory treatments via nebulizer w/ BIPAP during sleep hours
OT pending
CM will cont. to follow for d/c needs
Plan: Home w/ resumption of [facility] anticipated
[2024-05-10 13:21] LABS: Glucose - Point of Care 193 mg/dl (70-99)
[2024-05-10] MEDS: NOVOLOG FLEXPEN-LOW RESISTANCE 1 UNITS SC (13:23)
[2024-05-10 16:38] LABS: Glucose - Point of Care 129 mg/dl (70-99)
[2024-05-10] MEDS: FLUSH (NSS) 1 FLUSH IV (17:20)
[2024-05-10 21:32] LABS: Glucose - Point of Care 181 mg/dl (70-99)
[2024-05-10] MEDS: LANTUS 0.1 UNITS SC (22:40)
[2024-05-10] MEDS: FLOMAX 0.4 MG PO (22:40)
[2024-05-10] MEDS: CRESTOR 40 MG PO (22:40)
[2024-05-11] VITALS (10 sets, daily range): BP systolic 108–140; BP diastolic 63–79; PULSE 2–73; O2SAT 95–97; BMI 37.1
[2024-05-11] MEDS: DUONEB 3 ML INH ×4 (07:19→19:33)
[2024-05-11] MEDS: PULMICORT 0.5 MG INH ×2 (07:19→19:33)
[2024-05-11 08:01] LABS: Glucose - Point of Care 144 mg/dl (70-99)
[2024-05-11 08:53] LABS: % Basophils 0.3 % (0-2); % Immature Granulocytes 0.4 % (0-0.5); % Lymphocytes 31.2 % (20.5-51.1); % Monocytes 8.5 % (1.7-9.3); % Neutrophils 58.6 % (42.2-75.2); Absolute Eosinophils 0.1 10^3/uL (0-0.7); Absolute Lymphocytes 2.1 10^3/uL (1.2-3.4); Absolute Monocytes 0.6 10^3/uL (0.1-0.6); Absolute Neutrophils 3.9 10^3/uL (1.4-6.5); Hematocrit 36.7 % (39.0-52.0); Hemoglobin 12.5 g/dL (13.0-18.0); Mean Corp Hgb Conc. 34.1 g/dL (33.0-37.0); Mean Corpuscular Hgb 29.8 pg (27.0-31.0); Mean Corpuscular Volume 87.4 fL (80.0-94.0); Mean Platelet Volume 9.1 fL (7.4-10.4); Nucleated Red Blood Cells % 0 % (-); Platelet Count 128 10^3/uL (130-400); White Blood Cell Count 6.7 10^3/uL (4.8-10.8)
[2024-05-11] MEDS: NOVOLOG FLEXPEN-LOW RESISTANCE SC ×3 (08:56→17:04)
[2024-05-11] MEDS: COZAAR 50 MG PO (08:58)
[2024-05-11] MEDS: LYRICA 100 MG PO ×3 (08:59→21:04)
[2024-05-11] MEDS: TOPROL XL 12.5 MG PO (09:00)
[2024-05-11] MEDS: PROTONIX 40 MG PO (09:00)
[2024-05-11] MEDS: LASIX 40 MG IV ×2 (09:01→17:03)
[2024-05-11] MEDS: ELIQUIS 5 MG PO ×2 (09:01→19:49)
[2024-05-11] MEDS: PAXIL 10 MG PO (09:01)
[2024-05-11 09:18] LABS: Blood Urea Nitrogen 31 mg/dl (9-20); Calcium 9.2 mg/dl (8.4-10.2); Carbon Dioxide 26 mmol/L (22-30); Chloride 102 mmol/L (98-107); Estimated Creatinine Clearance 47 ml/min; Glucose 135 mg/dl (70-99); Potassium 4.1 mmol/L (3.5-5.1); Sodium 145 mmol/L (135-145); eGFR 48.65
--- NOTE | 2024-05-11 11:33 | W.PN.HOSP.TC ---
Today's Communication/Plan
-
Monitor vital signs see plan
Continue diuresis
Cardiology to see today
Monitor renal function
PT/OT
Assessment / Plan
Assessment / Plan
General: Comfortable and Conversant
HEENT: Anicteric and Moist mucous membranes
Respiratory: Wheezes (Diffuse) and Non Labored Respirations
Cardiac: S1/S2, Regular Rhythm and Murmur
GI: Soft, Non Tender and Other (Protuberant)
Rectal: Deferred by Provider
Musculoskeletal: No Clubbing, No Cyanosis and Other (+1 pitting edema bilateral lower extremities)
Neuro: Awake, Alert, Oriented and Nonfocal/grossly intact
Psych: Calm
Acute on Chronic HFpEF
-Cardiology following
-Continue Lasix
-Monitor Is&Os and Daily Weights
COPD, suspect component of mild acute exacerbation
-Added Pulmicort Neb and DuoNeb
Monitor troponin elevation likely secondary to nonischemic myocardial injury
Paroxysmal Atrial Fibrillation
-Continue Eliquis
-Continue metoprolol for rate control
Essential Hypertension
-Continue losartan
Hyperlipidemia
-Continue Crestor
Diabetes Mellitus, Type II
-Continue Lantus 10 units HS
-Monitor sugars and continue coverage insulin
Diabetic Neuropathy
-Continue Lyrica
CKD Stage 3A
-Monitor creatinine closely while on diuretics
Depression
-Continue Paxil
BPH
-Continue Flomax
Obstructive Sleep Apnea
-Continue BiPAP
Coronary Artery Disease s/p CABG
DVT proph: Eliquis
Code Status: Full Code
Anticipated Discharge: Within 24 hours
Subjective/Interval History
-
Date of Service: May 11, 2024
denies pain
Objective Data
-
Labs:
Laboratory Results
05/11/24
08:15
WBC 6.7
Hgb 12.5 L
Hct 36.7 L
Plt Count 128 L
Sodium 145
Potassium 4.1
Chloride 102
Carbon Dioxide 26
BUN 31 H
Creatinine 1.4 H
Glucose 135 H
Calcium 9.2
Vital Signs:
Vital Signs
Temp Pulse Resp BP Pulse Ox
98.1 F 74 15 140/75 99
05/11/24 07:00 05/11/24 08:58 05/11/24 07:35 05/11/24 08:58 05/11/24 08:35
I&O
05/10/24 05/11/24 05/12/24
06:59 06:59 06:59
Intake Total 240 / 240 420 / 420
Output Total 0 / 0
Balance 240 / 240 420 / 420
[2024-05-11 11:54] LABS: Glucose - Point of Care 134 mg/dl (70-99)
--- NOTE | 2024-05-11 12:18 | W.PN.CARDCBS ---
Addendum entered and electronically signed by Felipe Patton DO 05/11/24 14:44:
I saw and examined the patient.
The Police Communications Operator's note was reviewed and I agree with the note.
Comment:
Plan:
Continue IV lasix 40 mg BID for likely one more day
Cont Toprol and ARB
Remains in sinus s/p cv in Feb 2024.
Cont Eliquis
Cont medical therapy of nonMI troponin, trend until peaks
Could resume jardiance from cardiac standpoint.
Outpt follow up to be arranged.
Original Note:
Today's Communication / Plan
-
Cont Lasix 40 mg PO BID
Consider restarting Jardiance
Consider adding AAD
Impression / Plan
-
PCP: Reed Echavarria
Primary Inside Sales Associate: Dr. Lima
Impression:
Presented with dyspnea on exertion, weight gain, fatigue and lower extremity edema 05/09/2024
Acute on chronic HFpEF
Paroxysmal atrial fibrillation, initial diagnosis 02/2024
s/p CV 03/10/2024
Elevated Troponin
CAD
s/p CABG with GARCIA to LAD, sequential SVG to RCA and OM, SVG to diagonal 10/2006
s/p 3.0 mm Xience to OM-1 12/04/09
s/p 4.0 mm Xience to prox LAD 12/05/09
Mild peak/mean 18/9 mmHg by echo 03/08/24
Hypertension
Hyperlipidemia
Diabetes with diabetic neuropathy
COPD
Obesity
BRAYDON on CPAP
GERD
BPH
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
Chronic back pain
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
Remote former smoker
Lexiscan nuclear stress test 08/2018: Imaging with small area of mildly decreased perfusion fixed in basal anterolateral segment that resolves with prone imaging consistent with STA, EF 58%, no evidence of significant CAD
[employer] 5-day monitor February 2024: 25% A-fib burden longest 3 hours, predominantly sinus rhythm.
ECHO 06/03/23: EF 50-55, no regional wall motion abnormalities, mild concentric LVH, moderate with peak/mean gradients 29/18 mmHg, BRENDA 1.2 cm�, mild AR
ECHO 03/08/24: EF 50 to 55%, mild MR, mild with peak/mean gradients 18/9 mmHg, mild AR, mild TR, dilated aortic root measuring 3.8 cm at sinuses of Valsalva and 3.5 cm at sinotubular junction with ascending aorta dilatation measuring 4.5 cm
Plan:
-Weight is down 4 lbs overnight with Lasix 40 mg IV BID. Patient was taking Lasix 40 mg PO BID prior to admission.
-EF 50-55% by echo 03/08/24.
-Outpatient dose of Toprol XL 12.5 mg daily continued
-Outpatient dose of losartan 50 mg daily continued
-Jardiance stopped for BUDDY 02/2024, but could potentially be restarted.
-Paroxysmal Afib newly diagnosed February 2024 and managed with successful CV 03/10/24. Outpatient monitor 03/10/24 until 03/17/24 showed 25% A-fib burden. Currently in sinus rhythm. Consider AAD.
-Troponin trended up to 0.049, recheck 05/11/24 AM. Likely nonischemic myocardial injury Troponin elevation due to acute HF.
HPI 05/10/24: Patient is reporting an 88-year-old male with past medical history of CAD status post remote CABG in the and prior PCI, chronic HFpEF, CKD, COPD, obesity, BRAYDON on CPAP, moderate aortic stenosis, hypercholesterolemia, diabetes
with diabetic neuropathy who presented DHED 05/09/2024 with progressively worsening dyspnea on exertion, weight gain, fatigue and lower extremity edema despite up titration of outpatient diuretics. Patient admits to noncompliance with his diet
eating lunch meats and high sodium foods such as Nigerien and oyster soup as an outpatient. Chest x-ray showed cardiomegaly with mild interstitial edema and trace left pleural effusion. proBNP 1680. Troponin initially 0.035->0.049. EKG showed
sinus rhythm with first-degree AV block/right bundle branch block. No ischemic changes. Patient was given 60 mg IV Lasix in emergency department and reports good response. Patient denies chest pain, shortness of breath at rest, palpitations,
dizziness. He reports last night he was able to sleep well with his CPAP without orthopnea or PND
Progress Note - Inside Sales Associate
Subjective
Date of Service: May 11, 2024
Less SOB
Objective
Labs:
05/11/24 08:15
05/11/24 08:15
Labs
Hgb 12.5 g/dL (13.0-18.0) L 05/11/24 08:15
Hct 36.7 % (39.0-52.0) L 05/11/24 08:15
Plt Count 128 10^3/uL (130-400) L 05/11/24 08:15
Sodium 145 mmol/L (135-145) 05/11/24 08:15
Potassium 4.1 mmol/L (3.5-5.1) 05/11/24 08:15
BUN 31 mg/dl (9-20) H 05/11/24 08:15
Creatinine 1.4 mg/dL (0.7-1.3) H 05/11/24 08:15
Glucose 135 mg/dl (70-99) H 05/11/24 08:15
Troponins
05/09/24 05/09/24 05/10/24
16:58 23:37 04:58
Troponin I 0.035 H* 0.040 H* 0.049 H*
Vital Signs and I&O:
Vital Signs
Temp Pulse Resp BP Pulse Ox
99 F 69 17 108/65 96
05/11/24 11:00 05/11/24 11:00 05/11/24 11:00 05/11/24 11:00 05/11/24 11:00
Vital Signs
Temp Pulse Resp BP Pulse Ox
99 F 69 17 108/65 96
05/11/24 11:00 05/11/24 11:00 05/11/24 11:00 05/11/24 11:00 05/11/24 11:00
Intake & Output
05/09/24 05/10/24 05/11/24 05/12/24
06:59 06:59 06:59 06:59
Intake Total 240 / 240 420 / 420
Output Total 0 / 0
Balance 240 / 240 420 / 420
Physical Exam
Physical Exam
General: NAD
HEENT: EOMI
Heart: SR on tele
Lungs: No audible wheeze
Extremities: No edema B/L
Neuro: No focal or lateralizing weakness
--- NOTE | 2024-05-11 15:22 | PTOTSP ---
pt currently requires supervision to complete simple ADLs, functional transfers, ambulation. pt reports weighing self daily, no difficulties with medication management. no overt deficits noted regarding self care, no OT needs identified, will sign
off.
[2024-05-11 16:18] LABS: Glucose - Point of Care 141 mg/dl (70-99)
[2024-05-11] MEDS: CRESTOR 40 MG PO (21:03)
[2024-05-11] MEDS: FLOMAX 0.4 MG PO (21:03)
[2024-05-11 21:43] LABS: Glucose - Point of Care 134 mg/dl (70-99)
[2024-05-11] MEDS: LANTUS 0.1 UNITS SC (22:03)
[2024-05-12 03:15] VITALS: PULSE 2
[2024-05-12 04:00] VITALS: BP 128/64
[2024-05-12 06:00] VITALS: BMI 37.0
[2024-05-12 07:05] VITALS: BP 112/68
[2024-05-12 07:11] LABS: Glucose - Point of Care 128 mg/dl (70-99)
[2024-05-12 07:51] LABS: % Basophils 0.5 % (0-2); % Eosinophils 1.5 % (0-6); % Immature Granulocytes 0.3 % (0-0.5); % Lymphocytes 31.4 % (20.5-51.1); % Monocytes 13.2 % (1.7-9.3); % Neutrophils 53.1 % (42.2-75.2); Absolute Eosinophils 0.1 10^3/uL (0-0.7); Absolute Lymphocytes 1.9 10^3/uL (1.2-3.4); Absolute Monocytes 0.8 10^3/uL (0.1-0.6); Absolute Neutrophils 3.2 10^3/uL (1.4-6.5); Hematocrit 34.7 % (39.0-52.0); Hemoglobin 11.4 g/dL (13.0-18.0); Mean Corp Hgb Conc. 32.9 g/dL (33.0-37.0); Mean Corpuscular Hgb 28.2 pg (27.0-31.0); Mean Corpuscular Volume 85.9 fL (80.0-94.0); Mean Platelet Volume 9.3 fL (7.4-10.4); Nucleated Red Blood Cells % 0 % (-); Platelet Count 124 10^3/uL (130-400); Red Blood Cell Count 4.04 10^6/uL (4.70-6.10); White Blood Cell Count 6.1 10^3/uL (4.8-10.8)
[2024-05-12] MEDS: NOVOLOG FLEXPEN-LOW RESISTANCE SC (07:54)
[2024-05-12] MEDS: DUONEB 3 ML INH ×2 (07:55→11:34)
[2024-05-12] MEDS: PULMICORT 0.5 MG INH (07:55)
[2024-05-12] MEDS: LYRICA 100 MG PO (08:05)
[2024-05-12] MEDS: COZAAR PO (08:05)
[2024-05-12] MEDS: TOPROL XL 12.5 MG PO (08:05)
[2024-05-12] MEDS: PAXIL 10 MG PO (08:06)
[2024-05-12] MEDS: ELIQUIS 5 MG PO (08:06)
[2024-05-12] MEDS: LASIX 40 MG IV (08:06)
[2024-05-12] MEDS: PROTONIX 40 MG PO (08:06)
[2024-05-12 08:16] LABS: Troponin I 0.038 ng/ml
[2024-05-12 08:25] LABS: Blood Urea Nitrogen 35 mg/dl (9-20); Calcium 9.1 mg/dl (8.4-10.2); Carbon Dioxide 26 mmol/L (22-30); Chloride 102 mmol/L (98-107); Estimated Creatinine Clearance 46 ml/min; Glucose 130 mg/dl (70-99); Potassium 4.1 mmol/L (3.5-5.1); Sodium 143 mmol/L (135-145); eGFR 48.65
--- NOTE | 2024-05-12 09:53 | W.PN.CARDCBS ---
Addendum entered and electronically signed by Felipe Patton DO 05/12/24 12:19:
I saw and examined the patient.
The Life Enrichment Assistant's note was reviewed and I agree with the note.
Comment:
Plan:
Stable for DC and from cardiac standpoint.
Weight continues to come down.
Resume outpatient Lasix dosing.
Outpt cardiac follow up
Original Note:
Today's Communication / Plan
-
D/C to home
Recheck BMP in 1 week, lab slip on chart
Lasix 40 mg PO BID
Impression / Plan
-
PCP: Reed Echavarria
Primary Medical Physics Professor: Dr. Lima
Impression:
Presented with dyspnea on exertion, weight gain, fatigue and lower extremity edema 05/09/2024
Acute on chronic HFpEF
Paroxysmal atrial fibrillation, initial diagnosis 02/2024
s/p CV 03/10/2024
Elevated Troponin
CAD
s/p CABG with GARCIA to LAD, sequential SVG to RCA and OM, SVG to diagonal 10/2006
s/p 3.0 mm Xience to OM-1 12/04/09
s/p 4.0 mm Xience to prox LAD 12/05/09
Mild peak/mean 18/9 mmHg by echo 03/08/24
Hypertension
Hyperlipidemia
Diabetes with diabetic neuropathy
COPD
Obesity
BRAYDON on CPAP
GERD
BPH
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
Chronic back pain
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
Remote former smoker
Lexiscan nuclear stress test 08/2018: Imaging with small area of mildly decreased perfusion fixed in basal anterolateral segment that resolves with prone imaging consistent with STA, EF 58%, no evidence of significant CAD
Bardy 5-day monitor February 2024: 25% A-fib burden longest 3 hours, predominantly sinus rhythm.
ECHO 06/03/23: EF 50-55, no regional wall motion abnormalities, mild concentric LVH, moderate with peak/mean gradients 29/18 mmHg, BRENDA 1.2 cm�, mild AR
ECHO 03/08/24: EF 50 to 55%, mild MR, mild with peak/mean gradients 18/9 mmHg, mild AR, mild TR, dilated aortic root measuring 3.8 cm at sinuses of Valsalva and 3.5 cm at sinotubular junction with ascending aorta dilatation measuring 4.5 cm
Plan:
-Weight is down another 1 lb overnight with Lasix 40 mg IV BID. Patient was taking Lasix 40 mg PO BID prior to admission and will resume that dose upon d/c to home
-Patient is agreeable to VN and will arrange cardiology f/u.
-Cre stable at 1.4. Recheck BMP in 1 week as an outpatient, slip on chart
-EF 50-55% by echo 03/08/24.
-Outpatient dose of Toprol XL 12.5 mg daily continued
-Outpatient dose of losartan 50 mg daily continued
-Jardiance stopped for BUDDY 02/2024, but could potentially be restarted.
-Paroxysmal Afib newly diagnosed February 2024 and managed with successful CV 03/10/24. Outpatient monitor 03/10/24 until 03/17/24 showed 25% A-fib burden. Currently in sinus rhythm. Consider AAD.
-Troponin trended up to 0.049, recheck 05/11/24 AM. Likely nonischemic myocardial injury Troponin elevation due to acute HF.
HPI 05/10/24: Patient is reporting an 88-year-old male with past medical history of CAD status post remote CABG in the and prior PCI, chronic HFpEF, CKD, COPD, obesity, BRAYDON on CPAP, moderate aortic stenosis, hypercholesterolemia, diabetes
with diabetic neuropathy who presented [facility] 05/09/2024 with progressively worsening dyspnea on exertion, weight gain, fatigue and lower extremity edema despite up titration of outpatient diuretics. Patient admits to noncompliance with his diet
eating lunch meats and high sodium foods such as Austrian and oyster soup as an outpatient. Chest x-ray showed cardiomegaly with mild interstitial edema and trace left pleural effusion. proBNP 1680. Troponin initially 0.035->0.049. EKG showed
sinus rhythm with first-degree AV block/right bundle branch block. No ischemic changes. Patient was given 60 mg IV Lasix in emergency department and reports good response. Patient denies chest pain, shortness of breath at rest, palpitations,
dizziness. He reports last night he was able to sleep well with his CPAP without orthopnea or PND
Progress Note - Medical Physics Professor
Subjective
Date of Service: May 12, 2024
Feels well and wants to go home
Objective
Labs:
05/12/24 07:17
05/12/24 07:17
Labs
Hgb 11.4 g/dL (13.0-18.0) L 05/12/24 07:17
Hct 34.7 % (39.0-52.0) L 05/12/24 07:17
Plt Count 124 10^3/uL (130-400) L 05/12/24 07:17
Sodium 143 mmol/L (135-145) 05/12/24 07:17
Potassium 4.1 mmol/L (3.5-5.1) 05/12/24 07:17
BUN 35 mg/dl (9-20) H 05/12/24 07:17
Creatinine 1.4 mg/dL (0.7-1.3) H 05/12/24 07:17
Glucose 130 mg/dl (70-99) H 05/12/24 07:17
Troponins
05/09/24 05/09/24 05/10/24
16:58 23:37 04:58
Troponin I 0.035 H* 0.040 H* 0.049 H*
05/12/24
07:17
Troponin I 0.038 H*
Vital Signs and I&O:
Vital Signs
Temp Pulse Resp BP Pulse Ox
97.5 F 68 16 112/68 96
05/12/24 07:05 05/12/24 08:05 05/12/24 07:58 05/12/24 08:05 05/12/24 07:58
Vital Signs
Temp Pulse Resp BP Pulse Ox
97.5 F 68 16 112/68 96
05/12/24 07:05 05/12/24 08:05 05/12/24 07:58 05/12/24 08:05 05/12/24 07:58
Intake & Output
05/10/24 05/11/24 05/12/24 05/13/24
06:59 06:59 06:59 06:59
Intake Total 240 / 240 420 / 420 1440 / 1440
Output Total 0 / 0
Balance 240 / 240 420 / 420 1440 / 1440
Physical Exam
Physical Exam
General: NAD
HEENT: EOMI
Heart: SR on tele
Lungs: No audible wheeze
Extremities: Trace edema B/L LE
Neuro: No focal or lateralizing weakness
[2024-05-12 11:00] VITALS: BP 116/66
--- NOTE | 2024-05-12 11:09 | W.PN.HOSP.TC ---
Addendum entered and electronically signed by Prakash Lizama MD 05/12/24 11:29:
Time of discharge 37 minutes
Original Note:
Today's Communication/Plan
-
Monitor vital signs
see plan
Continue with diuresis
Monitor renal function
Cardiology to see today
Assessment / Plan
Assessment / Plan
General: Comfortable and Conversant
HEENT: Anicteric and Moist mucous membranes
Respiratory: Non Labored Respirations
Cardiac: S1/S2, Regular Rhythm and Murmur
GI: Soft, Non Tender and Other (Protuberant)
Rectal: Deferred by Provider
Musculoskeletal: No Clubbing, No Cyanosis and Other (+1 pitting edema bilateral lower extremities)
Neuro: Awake, Alert, Oriented and Nonfocal/grossly intact
Psych: Calm
Acute on Chronic HFpEF
-Cardiology following
-Continue Lasix
-Monitor Is&Os and Daily Weights
COPD, suspect component of mild acute exacerbation
-Added Pulmicort Neb and DuoNeb
troponin elevation likely secondary to nonischemic myocardial injury
Paroxysmal Atrial Fibrillation
-Continue Eliquis
-Continue metoprolol for rate control
Essential Hypertension
-Continue losartan
Hyperlipidemia
-Continue Crestor
Diabetes Mellitus, Type II
-Continue Lantus 10 units HS
-Monitor sugars and continue coverage insulin
Diabetic Neuropathy
-Continue Lyrica
CKD Stage 3A
-Monitor creatinine closely while on diuretics
Depression
-Continue Paxil
BPH
-Continue Flomax
Obstructive Sleep Apnea
-Continue BiPAP
Coronary Artery Disease s/p CABG
DVT proph: Eliquis
Code Status: Full Code
Anticipated Discharge: Today
Subjective/Interval History
-
Date of Service: May 12, 2024
Denies pain
Objective Data
-
Labs:
Laboratory Results
05/12/24
07:17
WBC 6.1
Hgb 11.4 L
Hct 34.7 L
Plt Count 124 L
Sodium 143
Potassium 4.1
Chloride 102
Carbon Dioxide 26
BUN 35 H
Creatinine 1.4 H
Glucose 130 H
Calcium 9.1
Vital Signs:
Vital Signs
Temp Pulse Resp BP Pulse Ox
97.5 F 68 16 112/68 96
05/12/24 07:05 05/12/24 08:05 05/12/24 07:58 05/12/24 08:05 05/12/24 07:58
I&O
05/11/24 05/12/24 05/13/24
06:59 06:59 06:59
Intake Total 420 / 420 1440 / 1440
Output Total 0 / 0
Balance 420 / 420 1440 / 1440
--- NOTE | 2024-05-12 11:22 | CM ---
Pt seen bedside.
IMM reviewed, pt given copy. Copy placed in chart
Per hospitalist, pt can d/c today pending cardio
[facility] confirmed receipt of referral for [facility] at d/c
Pt son notified. Per son someone will transport at d/c
[facility]

Plan: Home w/ [facility]
--- NOTE | 2024-05-12 11:29 | W.DCSUMMARY ---
Discharge Summary
Discharge Data
Date of Admission: 05/09/24
Date of Discharge: 05/12/24
-
Pending Results: No
Hospital Course
88-year-old male with past medical history of CHF, COPD, paroxysmal atrial fibrillation, essential hypertension, hyperlipidemia, diabetes mellitus, diabetic neuropathy, CKD stage IIIa, depression, BPH, obstructive sleep apnea, coronary artery
disease status post CABG came to the hospital with lower extremity swelling and shortness of breath known to have acute on chronic congestive heart failure exacerbation. Patient was initially started on IV Lasix which improved his symptoms. He was
later transitioned to p.o. Lasix prior to discharge. It was determined that his exacerbation is likely secondary to his increased fluid intake and salt intake. He also had mild COPD exacerbation which over time improved with scheduled nebulizers.
He also had mild troponin elevation which was likely thought to be secondary to nonischemic myocardial injury. Once his symptoms continue to improve, he was then discharged home with instructions to follow-up with all his physicians outpatient.
Discharge Plan
-
Patient Disposition: Home (Routine Discharge)
Discharge Diagnosis/Procedures: Acute on chronic congestive heart failure with preserved ejection fraction
Mild COPD exacerbation
Nonischemic myocardial injury troponin elevation
Diet: As tolerated, 2 Gram Sodium and Restrict fluids to 64 oz
Activity: As tolerated
Driving Restrictions: As prior to admission
Bathing Restrictions: None
Blood Work: Check non-fasting blood work in 1 week
Other Services: VN
Specialty Instructions: Weigh Daily- Call MD for wt gain/loss 3 lbs overnight/5 lbs in 1 week
Instructions: *DCA Heart Failure Instructions
Referrals:
Reed Echavarria MD [Family Provider] - in less than 1 week
Felipe Patton DO [Active] - 05/23/24 10:20 am (You have an appt to see Dr. Patton's nurse practitioner, Ashley, at the [facility] office on 05/23/24 at 10:20 AM. Please call [phone] if you need to reschedule.)
Prescriptions:
Continued
cyanocobalamin (vitamin B-12) 1,000 MCG tablet
1,000 mcg PO QPM
esomeprazole magnesium [Nexium] 40 MG capsule,delayed release(DR/EC)
40 mg PO DAILY
albuterol sulfate 1 PUFF HFA aerosol inhaler
2 puff inhalation R Q4HPRN PRN (Reason: SHORTNESS OF BREATH)
eaaxaxbxfvp-liunkgwcm-ftr C-Mn 1 TAB tablet
1 tab PO BID
loratadine 10 MG tablet
10 mg PO DAILY
paroxetine HCl 12.5 MG tablet extended release 24 hr
12.5 mg PO DAILY
rosuvastatin [Crestor] 40 MG tablet
40 mg PO HS
multivitamin with folic acid [Tab-A-Evie] 1 TABLET tablet
1 tab PO QPM
ascorbic acid (vitamin C) [Vitamin C] 500 mg Tablet
500 mg PO QPM
tamsulosin 0.4 mg capsule
0.4 mg PO HS
pregabalin 100 mg capsule
100 mg PO TID
Patient Comments:
03/07/2024: last filled 04/18/24 for 84 tablets over 28 days
insulin glargine [Basaglar KwikPen U-100 Insulin] 100 unit/mL (3 mL) insulin pen
10 unit SC HS
Anoro Ellipta 62.5-25 mcg/actuation blister with device
1 inh INHALATION R DAILY
Eliquis 5 mg Tablet
5 mg PO BID Qty: 60 0RF
metoprolol succinate 25 mg Tablet Extended Release 24 Hr
12.5 mg PO DAILY Qty: 30 0RF
losartan 50 mg Tablet
50 mg PO DAILY
budesonide 32 mcg/actuation [place],Non-Aerosol
2 spray INTRANASAL DAILY
vitamin B complex Tablet
1 tab PO QPM
armodafinil 150 mg Tablet
150 mg PO DAILY
furosemide 40 mg tablet
40 mg PO BID
Patient Comments:
05/09/24: Patient recently had increased dosages at 80mg and 120mg for edema.
Discharge Orders:
Discharge Patient (As Directed); Ordered 05/12/24
Ordered By: Prakash Lizama
Discharge Date and Time
Discharge Date/Time: 05/12/24 15:22
Print Language: HONDURAN
[2024-05-12 11:41] LABS: Glucose - Point of Care 164 mg/dl (70-99)
[2024-05-12] MEDS: NOVOLOG FLEXPEN-LOW RESISTANCE 1 UNITS SC (12:26)
--- NOTE | 2024-05-13 09:37 | W.HF.CON ---
Heart Failure
- LV Function
Left ventricular function study result: LV Ejection fraction >/= 50% (ECHO 03/08/24)
Ejection Fraction Percentage: 50-55
- ARNI
Patient already on ARNI: No
Heart Failure ARNI Not Indicated: LV Ejection Fraction >/= 40%
- ACEI/ARB
Patient already on ACEI/ARB: Yes
- Beta Marycruz
Patient already on Evidence Based Beta Marycruz: Yes
- Mineralocorticord Receptor Antagonist
Patient already on MRA: No
Heart Failure MRA Not Indicated: LV Ejection Fraction > 40%
- SGLT-2 Inhibitor
Patient already on SGLT-2 Inhibitor: No
Heart Failure SGLT-2 Inhibitor Not Indicated: LV Ejection Fraction >40%
- Afib Anticoagulation
Patient already on Anticoagulation for Afib: Yes
- NYHA CHF Classification
NYHA CHF Classification Level: Class III - Symptoms w/ min exertion, interferes w/ nml daily activity
- ACC/AHA Stage
ACC/AHA Stage: Stage C: Symptomatic Heart Failure
== END 2024-05-12 15:22 | disposition home or self-care (01) | DRG 291 ==
LOC: 4 WEST ACU 22:23
PROVIDERS: Physician Assistant Medical; Registered Nurse; ADMITTING PHYSICIAN Hospitalist; ATTENDING PHYSICIAN Internal Medicine; EMERGENCY PHYSICIAN Emergency Medicine; FAMILY PHYSICIAN Family Medicine; OTHER PHYSICIAN Internal Medicine Cardiovascular Disease
PROC: 5A09357 Assistance with Respiratory Ventilation, Less than 24 Consecutive Hours, Continuous Positive Airway Pressure (ICD-10-PCS; 2024-05-10)
DX: I13.0 Hypertensive heart and chronic kidney disease with heart failure and stage 1 through stage 4 chronic kidney disease, or unspecified chronic kidney disease (principal); I50.33 Acute on chronic diastolic (congestive) heart failure; J44.1 Chronic obstructive pulmonary disease with (acute) exacerbation; E11.22 Type 2 diabetes mellitus with diabetic chronic kidney disease; E11.42 Type 2 diabetes mellitus with diabetic polyneuropathy; E66.01 Morbid (severe) obesity due to excess calories; F32.A Depression, unspecified; I08.0 Rheumatic disorders of both mitral and aortic valves; I71.40 Abdominal aortic aneurysm, without rupture, unspecified; N18.31 Chronic kidney disease, stage 3a; I5A Non-ischemic myocardial injury (non-traumatic); Z79.01 Long term (current) use of anticoagulants; I48.0 Paroxysmal atrial fibrillation; I45.10 Unspecified right bundle-branch block; I44.0 Atrioventricular block, first degree; I25.10 Atherosclerotic heart disease of native coronary artery without angina pectoris; Z95.1 Presence of aortocoronary bypass graft; Z95.5 Presence of coronary angioplasty implant and graft; E78.00 Pure hypercholesterolemia, unspecified; F40.240 Claustrophobia; G47.33 Obstructive sleep apnea (adult) (pediatric); G89.29 Other chronic pain; M54.9 Dorsalgia, unspecified; K21.9 Gastro-esophageal reflux disease without esophagitis; N40.0 Benign prostatic hyperplasia without lower urinary tract symptoms; Z79.4 Long term (current) use of insulin; Z79.84 Long term (current) use of oral hypoglycemic drugs; Z79.899 Other long term (current) drug therapy; Z87.891 Personal history of nicotine dependence; Z91.119 Patient's noncompliance with dietary regimen due to unspecified reason; Z85.828 Personal history of other malignant neoplasm of skin; Z96.643 Presence of artificial hip joint, bilateral; Z96.653 Presence of artificial knee joint, bilateral
CPT/HCPCS: 71046; 80048; 80053; 82962; 83036; 83735; 83880; 84484; 85025; 85027; 93005; 94640; 94660; 96374; 97116; 97162; 97166; 99285

== ENCOUNTER → 2024-09-22 12:25 | Outpatient (REF) | payer MEDICARE, BC, SELFPAY | LOC: RAD 12:25 | PROVIDERS: ATTENDING PHYSICIAN Nurse Practitioner Family | DX: R06.09 Other forms of dyspnea (principal) | CPT/HCPCS: 71046 ==

== ENCOUNTER 2024-11-07 17:11 | Emergency (ER) | payer MEDICARE, BC, SELFPAY ==
[2024-11-07 17:13] VITALS: BP 128/73
[2024-11-07 20:11] VITALS: BP 126/75
[2024-11-07 20:54] LABS: Hematocrit 35.9 % (39.0-52.0); Hemoglobin 12.4 g/dL (13.0-18.0); Mean Corp Hgb Conc. 34.5 g/dL (33.0-37.0); Mean Corpuscular Hgb 29.8 pg (27.0-31.0); Mean Corpuscular Volume 86.3 fL (80.0-94.0); Red Blood Cell Count 4.16 10^6/uL (4.70-6.10); White Blood Cell Count 7.6 10^3/uL (4.8-10.8)
[2024-11-07 20:58] LABS: ALT (SGPT) 15 U/L (0-50); AST (SGOT) 22 U/L (17-59); Albumin 4.5 g/dl (3.5-5.0); Alkaline Phosphatase 59 U/L (38-126); Blood Urea Nitrogen 71 mg/dl (9-20); Calcium 8.5 mg/dl (8.4-10.2); Carbon Dioxide 28 mmol/L (22-30); Chloride 103 mmol/L (98-107); Glucose 150 mg/dl (70-99); Potassium 4.3 mmol/L (3.5-5.1); Sodium 142 mmol/L (135-145); Total Bilirubin 0.6 mg/dl (0.2-1.3); Total Protein 6.8 g/dl (6.3-8.2); eGFR 28.28
[2024-11-07 21:06] LABS: NT-proBNP 1540 pg/ml
[2024-11-07 21:19] LABS: % Basophils 0.4 % (0-2); % Eosinophils 1.6 % (0-6); % Immature Granulocytes 0.5 % (0-0.5); % Lymphocytes 49.5 % (20.5-51.1); % Monocytes 7.9 % (1.7-9.3); % Neutrophils 40.1 % (42.2-75.2); Absolute Eosinophils 0.1 10^3/uL (0-0.7); Absolute Lymphocytes 3.7 10^3/uL (1.2-3.4); Absolute Monocytes 0.6 10^3/uL (0.1-0.6); Mean Platelet Volume 9.4 fL (7.4-10.4); Platelet Count 98 10^3/uL (130-400)
[2024-11-07 22:14] VITALS: BP 111/59
--- NOTE | 2024-11-07 22:15 | ED.SKININJ ---
HPI-Injury
General
Chief Complaint: Head Injury
Source: patient and other (Dr. Echavarria)
Exam Limitations: none
Time Seen by Provider: 11/07/24 17:27
Nursing documentation reviewed up to this point in time: agreed with
History of Present Illness-Injury
Is this injury a work related problem?: No
Is pt an associate of [facility]?: No
Initial Injury comments:
Patient to ED accompanied by son. He reports a trip an fall on . Hit forhead on floor. No LOC. On Eliquis. He was seen by PCP today and advised to come to ED for eval. PCP ocerned for possible CHF as patient ahs been more SOB. Patient
also complains of pain to his right hand, wrist and elbow.
Past History
Past History
ED Past Medical History: CAD, Cancer (Skin CA), CHF, COPD, GERD, HTN, Hypercholesterolemia, NIDDM, [place], Psychiatric (Claustrophobia) and Other (Neuropathy, numbness and tingling in the arms and legs. Sleep apnea, Mitral regurg, Ulcers)
ED Past Surgical History: Appendectomy, Cardiac (Stents, CABG, ), Orthopedic (Bilateral knee's and left hip and right hip replacement, Foot surgery, Torn meniscus) and Other (Cataracts, Myringotomy tube left ear)
Social History
Tobacco: Former smoker
Alcohol: Occasional
Personal:
Living: alone
Review of Systems
Review of Systems
Allergies reviewed?: Yes
All Other Systems: ROS reviewed and negative except as documented in HPI and ROS
Constitutional: Reports no symptoms
EENT: Reports no symptoms
Respiratory: Reports no symptoms
Cardiac: Reports no symptoms
ABD/GI: Reports no symptoms
: Reports no symptoms
Musculoskeletal: Reports joint pain (Pain to right wrist hand, elbow)
Skin: Reports other (Hematoma right orbit. Abrasion to right elbow)
Neurological: Reports no symptoms
Psychiatric: Reports no symptoms
Skin Exam
Abrasion
Right Posterior Elbow:
Description of abrasion: superfical/clean
Phy Exam
General Physical Exam
General Presentation: well appearing and no apparent distress
General age: appears stated age
General Skin: warm and dry
General Habitus: normal
General Mental: alert
Cardiovascular Exam
Cardiovascular Exam: regular rate/rhythm
Pulmonary Exam
Pulmonary Exam: lungs clear and no respiratory distress
Gastrointestinal Exam
Gastrointestinal Exam: normal bowel sounds and non tender
Neurological Exam
Neurological Exam: alert, oriented x3, CN II-XII intact, no motor deficits, no sensory deficits and speech normal
Musculoskeletal Exam
Musculoskeletal Exam: full ROM and neuro vasc intact
Skin Exam
Skin Exam: normal color and warm/dry
Psychiatric Exam
Psychiatric Exam: normal mood/affect
Course
Orders/Labs/Results
Orders:
Orders
11/07/24 17:12
CT Head W/o Iv Contrast Urgent
Comment:
Reason For Exam: fall on thinners
11/07/24 20:09
Electrocardiogram (*1) Urgent
Reason for Study: Shortness of Breath
EKG- Treatment ONCE
CR Chest - 2 Views Urgent
Comment:
Reason For Exam: SOB
11/07/24 20:35
Complete Blood Count/With Diff Urgent
Comprehensive Metabolic Panel Urgent
NT-proBNP Urgent
11/07/24 21:26
Elbow, 3 View, Right [CR Elbow - Right Min 3 Views] Urgent
Comment:
Reason For Exam: fall
Hand, Right 3 View [CR Hand - Right Min 3 Views] Urgent
Comment:
Reason For Exam: fall
Wrist, Right 3 Views [CR Wrist - Right Min 3 Views] Urgent
Comment:
Reason For Exam: fall
Abnormal Lab Results
11/07/24
20:35
RBC 4.16 L 10^6/uL
(4.70-6.10)
Hgb 12.4 L g/dL
(13.0-18.0)
Hct 35.9 L %
(39.0-52.0)
Plt Count 98 L 10^3/uL
(130-400)
Absolute Lymphs (auto) 3.7 H 10^3/uL
(1.2-3.4)
Neutrophils % 40.1 L %
(42.2-75.2)
BUN 71 H mg/dl
(9-20)
Creatinine 2.2 H mg/dL
(0.7-1.3)
Glucose 150 H mg/dl
(70-99)
11/07/24 20:35
11/07/24 20:35
Vital Signs
Initial and Last Documented VS:
Initial Vital Signs
Temp Pulse Resp BP Pulse Ox
97.7 F 64 16 128/73 97
11/07/24 17:13 11/07/24 17:13 11/07/24 17:13 11/07/24 17:13 11/07/24 17:13
Last Documented Vital Signs
Temp Pulse Resp BP Pulse Ox
97.7 F 62 18 111/59 96
11/07/24 17:13 11/07/24 22:14 11/07/24 22:14 11/07/24 22:14 11/07/24 22:14
*Radiology
Radiology exam reviewed: radiology read reviewed
*Pulse Oximetry
Patient hypoxic: no
*Critical Care Note
Total Time (30-74mins, 75-104mins- exclusive of procedures): Not Applicable
Update Note
Update Note:
Patient to ED for eval s/p fall 4 days ago. Labs reviewed. BUN/Creat slightly higher than normal. Taking extra dose of lasix m-w-fri. Recommend holding extra doses and rechecking labs in 1 week. All other labs stable. Head CT neg for bleeding.
Dr. Echavarria updated. WIll discharge home, follow up in office with PCP. Case discussed with dr. arguello who agrees with plan.
ED Attending Note
-
Portions of this chart may have been created with voice recognition software.� Occasional wrong word or��sound alike� substitutions may have occurred due to the inherent limitations of voice recognition software.
Discharge Plan
Departure
Patient Disposition: Home (Routine Discharge)
Date of Disposition: 11/07/24
Time of Disposition: 22:07
Patient with high blood pressure during this ER visit?: No
Condition: Good
Covid-19: Not Applicable
Discharge Problem:
Head injury
Instructions: Wound Care (DC), Head Injury in Adults (DC), Contusion (DC)
Prescriptions:
No Action
cyanocobalamin (vitamin B-12) 1,000 MCG tablet
1,000 mcg PO QPM
esomeprazole magnesium [Nexium] 40 MG capsule,delayed release(DR/EC)
40 mg PO DAILY
albuterol sulfate 1 PUFF HFA aerosol inhaler
2 puff inhalation R Q4HPRN PRN (Reason: SHORTNESS OF BREATH)
ulfqnqlbzkx-iluqhbjxi-rzx C-Mn 1 TAB tablet
1 tab PO BID
loratadine 10 MG tablet
10 mg PO DAILY
paroxetine HCl 12.5 MG tablet extended release 24 hr
12.5 mg PO DAILY
rosuvastatin [Crestor] 40 MG tablet
40 mg PO HS
multivitamin with folic acid [Tab-A-Evie] 1 TABLET tablet
1 tab PO QPM
ascorbic acid (vitamin C) [Vitamin C] 500 mg Tablet
500 mg PO QPM
tamsulosin 0.4 mg capsule
0.4 mg PO HS
pregabalin 100 mg capsule
100 mg PO TID
Patient Comments:
03/07/2024: last filled 04/18/24 for 84 tablets over 28 days
insulin glargine [Basaglar KwikPen U-100 Insulin] 100 unit/mL (3 mL) insulin pen
10 unit SC HS
Anoro Ellipta 62.5-25 mcg/actuation blister with device
1 inh INHALATION R DAILY
Eliquis 5 mg Tablet
5 mg PO BID Qty: 60 0RF
metoprolol succinate 25 mg Tablet Extended Release 24 Hr
12.5 mg PO DAILY Qty: 30 0RF
losartan 50 mg Tablet
50 mg PO DAILY
budesonide 32 mcg/actuation [place],Non-Aerosol
2 spray INTRANASAL DAILY
vitamin B complex Tablet
1 tab PO QPM
armodafinil 150 mg Tablet
150 mg PO DAILY
furosemide 40 mg tablet
40 mg PO BID
Patient Comments:
05/09/24: Patient recently had increased dosages at 80mg and 120mg for edema.
Referrals:
Laura Ramey CRNP [Family Provider] - Call in 1-3 days for appt
Interventions
Interventions:
*Risk Screen - Suicide Last Done: 11/07/24 17:15
*General Assessment Last Done: 11/07/24 17:33
*Neglect/Abuse Screening Last Done: 11/07/24 17:15
*ED- Fall Risk Assessment Last Done: 11/07/24 17:33
*ED COVID-19 Vaccine History Last Done: 11/07/24 17:33
ED- Neurological Assessment Last Done: 11/07/24 17:33
ED-Skin Assessment Last Done: 11/07/24 17:33
Discharge Date and Time
Print Language: MACEDONIAN
Musculoskeletal Injury Exam
Musculoskeletal Injury Exam
Right Hand:
Pain with Movement?: Mild
Tender to palpation?: Mild
Soft tissue swelling?: None
External deformity and angulation?: None
Joint effusion?: None
Contusion?: Mild
Hematoma-local bleeding into tissue?: Mild
Strain- Sprain- Tear (Connective tissue injury)?: Mild
Crepitus with movement?: No
Joint instability?: No
Malalignment/deformity?: No
Range of motion: Full
Distal skin color and temperature: normal-warm & good color
Capillary Refill: normal
Normal distal neurovascular exam?: Yes
Right Wrist:
Pain with Movement?: Mild
Tender to palpation?: Mild
Soft tissue swelling?: None
External deformity and angulation?: None
Joint effusion?: None
Contusion?: Mild
Hematoma-local bleeding into tissue?: Mild
Strain- Sprain- Tear (Connective tissue injury)?: Mild
Crepitus with movement?: No
Malalignment/deformity?: No
Range of motion: Full
Distal skin color and temperature: normal-warm & good color
Capillary Refill: normal
Normal distal neurovascular exam?: Yes
Right Elbow:
Pain with Movement?: Mild
Tender to palpation?: Mild
Soft tissue swelling?: None
External deformity and angulation?: None
Joint effusion?: None
Contusion?: Mild
Hematoma-local bleeding into tissue?: None
Strain- Sprain- Tear (Connective tissue injury)?: None
Crepitus with movement?: No
Joint instability?: No
Malalignment/deformity?: No
Range of motion: Full
Distal skin color and temperature: normal-warm & good color
Capillary Refill: normal
Normal distal neurovascular exam?: Yes
== END 2024-11-07 22:32 | disposition home or self-care (01) ==
LOC: EMR 17:11
PROVIDERS: Nurse Practitioner; EMERGENCY PHYSICIAN Emergency Medicine; FAMILY PHYSICIAN Nurse Practitioner Family
DX: S09.90XA Unspecified injury of head, initial encounter (principal); S50.311A Abrasion of right elbow, initial encounter; W01.0XXA Fall on same level from slipping, tripping and stumbling without subsequent striking against object, initial encounter; E11.9 Type 2 diabetes mellitus without complications; E78.00 Pure hypercholesterolemia, unspecified; G47.30 Sleep apnea, unspecified; I11.0 Hypertensive heart disease with heart failure; I50.9 Heart failure, unspecified; I25.10 Atherosclerotic heart disease of native coronary artery without angina pectoris; I34.0 Nonrheumatic mitral (valve) insufficiency; J44.9 Chronic obstructive pulmonary disease, unspecified; Z79.01 Long term (current) use of anticoagulants; Z87.891 Personal history of nicotine dependence; Z95.1 Presence of aortocoronary bypass graft
CPT/HCPCS: 99285; 70450; 71046; 73080; 73110; 73130; 80053; 83880; 85025; 93005

== ENCOUNTER → 2025-03-07 14:31 | Outpatient (REF) | payer MEDICARE, BC, SELFPAY | LOC: RCS 14:31 | PROVIDERS: ATTENDING PHYSICIAN Internal Medicine Cardiovascular Disease; FAMILY PHYSICIAN Family Medicine | DX: R55 Syncope and collapse (principal) | CPT/HCPCS: 93307; Q9957 ==

== ENCOUNTER → 2025-04-20 14:29 | Outpatient (REF) | payer MEDICARE, BC, SELFPAY | LOC: RAD 14:29 | PROVIDERS: ATTENDING PHYSICIAN Internal Medicine; FAMILY PHYSICIAN Family Medicine | DX: N18.32 Chronic kidney disease, stage 3b (principal) | CPT/HCPCS: 76770 ==